=== PATIENT | male | born 1960 | race Caucasian/White ===

== ENCOUNTER 2021-09-26 11:37 | Inpatient (IN) | payer BC, SELFPAY ==
[2021-09-26] VITALS (7 sets, daily range): BP systolic 128–164; BP diastolic 75–89; O2SAT 89–93
[~2021-09-26] VITALS: Ht 172.7 cm; Wt 79.9 kg
[2021-09-26 14:52] LABS: BASO % 0.1 % (0.0-1.0); HEMATOCRIT 46.3 % (42.0-52.0); HEMOGLOBIN 14.5 g/dl (13.5-17.5); LYMPH # 2.9 10^3/uL (1.5-5.0); LYMPH % 33.5 % (24.0-44.0); MEAN CORPUSCULAR HEMOGLOBIN 29.7 pg (27.0-33.0); MEAN CORPUSCULAR HGB CONC 31.3 g/dl (32.0-36.5); MEAN CORPUSCULAR VOLUME 94.9 fl (80.0-96.0); MONO # 0.6 10^3/uL (0.0-0.8); MONO % 7.1 % (2.0-8.0); NEUTROPHILS # 5.1 10^3/uL (1.5-8.5); NEUTROPHILS % 58.7 % (36.0-66.0); RED BLOOD COUNT 4.88 10^6/uL (4.30-6.10); WHITE BLOOD COUNT 8.7 10^3/uL (4.0-10.0)
[2021-09-26 15:01] LABS: INR 0.85
[2021-09-26 15:02] LABS: PARTIAL THROMBOPLASTIN TIME 29.6 SECONDS (25.9-37.0)
[2021-09-26 15:04] LABS: D-DIMER QUANT 838.45 ng/ml (<500)
[2021-09-26 15:35] LABS: ALBUMIN 2.1 GM/DL (3.2-5.2); ALT/SGPT 60 U/L (12-78); BILIRUBIN,DIRECT 0.2 MG/DL (0.0-0.2); BILIRUBIN,TOTAL 0.5 MG/DL (0.2-1.0); BLOOD UREA NITROGEN 21 MG/DL (7-18); C REACTIVE PROTEIN QUANTITATIV 6.15 MG/DL (0.00-0.30); CALCIUM LEVEL 7.8 MG/DL (8.8-10.2); CARBON DIOXIDE LEVEL 28 MEQ/L (21-32); CHLORIDE LEVEL 110 MEQ/L (98-107); CREATININE FOR GFR 0.95 MG/DL (0.70-1.30); FERRITIN 1983 NG/ML (26-388); GLOMERULAR FILTRATION RATE > 60.0 (>49); GLUCOSE, FASTING 89 MG/DL (70-100); LDH LACTATE DEHYDROGENASE 467 U/L (87-241); MAGNESIUM LEVEL 1.9 MG/DL (1.8-2.4); NT-PRO BNP 168 PG/ML (<125); POTASSIUM SERUM 3.8 MEQ/L (3.5-5.1); SODIUM LEVEL 142 MEQ/L (136-145); TOTAL PROTEIN 5.1 GM/DL (6.4-8.2)
[2021-09-26 16:02] LABS: PLATELET COUNT, AUTOMATED 91 10^3/uL (150-450)
[2021-09-26] MEDS ORDERED: POTA10CA32 PO (16:07)
[2021-09-26] MEDS ORDERED: LOSA25TA14 PO (16:07)
[2021-09-26] MEDS ORDERED: PRED5TA PO (16:07)
[2021-09-26] MEDS ORDERED: ALLO300T2 PO (16:07)
[2021-09-26] MEDS ORDERED: ALBU8.5H INH (16:07)
[2021-09-26] MEDS ORDERED: MYCO500T PO (16:07)
[2021-09-26] MEDS ORDERED: ERGO500029 PO (16:07)
[2021-09-26] MEDS ORDERED: DESL1TAB3 PO (16:07)
[2021-09-26] MEDS ORDERED: HYDR12CA PO (16:07)
[2021-09-26] MEDS ORDERED: HOME MED LIST COMPLETE! XX SCH (16:10)
[2021-09-26] MEDS ORDERED: ALBUTEROL 90 MCG/ACT 8GM HFA INHALER INH PRN (16:30)
[2021-09-26] MEDS: ACETAMINOPHEN TAB 650MG DOSE (2X325MG) PO PRN ×2 (16:51→20:53)
[2021-09-26] MEDS: ONDANSETRON 4MG/2ML VIAL IV PRN (16:51)
[2021-09-26] MEDS: dexameTHASONE 4 MG/ML 1ML VIAL (J1100 PER 1MG) IV SCH ×2 (17:00→18:14)
[2021-09-26] MEDS ORDERED: REMDESIVIR 200 MG in NS 250 ML IV ONE (18:00)
[2021-09-26] MEDS: BARICITINIB 2MG TABLET (OLUMIANT) FOR EUA PO SCH (18:13)
[2021-09-26] MEDS: ASPIRIN 81MG ENTERIC TABLET PO SCH (18:14)
[2021-09-26] MEDS: NS 1,000 ML IV SCH (18:15)
[2021-09-26] MEDS ORDERED: SODIUM CHLORIDE 0.9% INJ 10 ML SYR IV ONE (19:00)
[2021-09-26] MEDS: MYCOPHENOLATE MOFETIL 250 MG CAP (J7517) PO SCH (20:53)
[2021-09-26 21:23] LABS: APPEARANCE, URINE CLEAR (CLEAR); BACTERIA, URINE AUTO NEGATIVE (NEGATIVE); BILIRUBIN, URINE AUTO NEGATIVE (NEGATIVE); BLOOD, URINE BLOOD 1+ (NEGATIVE); COLOR, URINE YELLOW (YELLOW); GLUCOSE, URINE (UA) AUTO NEGATIVE (NEGATIVE); KETONE, URINE AUTO NEGATIVE (NEGATIVE); LEUKOCYTE ESTERASE, URINE AUTO NEGATIVE (NEGATIVE); MUCUS, URINE SMALL (NEGATIVE); NITRITE, URINE AUTO NEGATIVE (NEGATIVE); PROTEIN, URINE AUTO 3+ mg/dL (NEGATIVE); RBC, URINE AUTO 1 /HPF (0-3); SPECIFIC GRAVITY URINE AUTO 1.019 (1.002-1.035); SQUAMOUS EPITHELIAL CELL UR AU 0 /HPF (0-6); UROBILINOGEN, URINE AUTO 0.2 mg/dL (0.0-2.0); WBC, URINE AUTO 1 /HPF (0-3)
[2021-09-27] VITALS (9 sets, daily range): BP systolic 129–160; BP diastolic 68–89; O2SAT 86–93
[2021-09-27] MEDS: NS 1,000 ML IV SCH (01:02)
[2021-09-27] MEDS: ACETAMINOPHEN TAB 650MG DOSE (2X325MG) PO PRN ×3 (01:03→15:48)
[2021-09-27 06:37] LABS: BASO % 0.2 % (0.0-1.0); HEMATOCRIT 43.5 % (42.0-52.0); HEMOGLOBIN 13.7 g/dl (13.5-17.5); LYMPH # 1.6 10^3/uL (1.5-5.0); LYMPH % 27.9 % (24.0-44.0); MEAN CORPUSCULAR HEMOGLOBIN 30.5 pg (27.0-33.0); MEAN CORPUSCULAR HGB CONC 31.5 g/dl (32.0-36.5); MEAN CORPUSCULAR VOLUME 96.9 fl (80.0-96.0); MONO # 0.3 10^3/uL (0.0-0.8); NEUTROPHILS # 3.9 10^3/uL (1.5-8.5); NEUTROPHILS % 66.4 % (36.0-66.0); RED BLOOD COUNT 4.49 10^6/uL (4.30-6.10); WHITE BLOOD COUNT 5.8 10^3/uL (4.0-10.0)
[2021-09-27 06:43] LABS: PLATELET COUNT, AUTOMATED 90 10^3/uL (150-450)
[2021-09-27 06:48] LABS: BLOOD UREA NITROGEN 24 MG/DL (7-18); CALCIUM LEVEL 7.5 MG/DL (8.8-10.2); CARBON DIOXIDE LEVEL 26 MEQ/L (21-32); CHLORIDE LEVEL 111 MEQ/L (98-107); GLOMERULAR FILTRATION RATE > 60.0 (>49); GLUCOSE, FASTING 156 MG/DL (70-100); MAGNESIUM LEVEL 1.8 MG/DL (1.8-2.4); POTASSIUM SERUM 4.8 MEQ/L (3.5-5.1); SODIUM LEVEL 142 MEQ/L (136-145)
[2021-09-27] MEDS: BARICITINIB 2MG TABLET (OLUMIANT) FOR EUA PO SCH (08:22)
[2021-09-27] MEDS: ASPIRIN 81MG ENTERIC TABLET PO SCH (08:22)
[2021-09-27] MEDS: LORATADINE 5 MG HALF-TAB PO SCH (08:22)
[2021-09-27] MEDS: dexameTHASONE 4 MG/ML 1ML VIAL (J1100 PER 1MG) IV SCH (08:23)
[2021-09-27] MEDS: allopurinoL 300 MG TAB PO SCH (08:23)
[2021-09-27] MEDS: LOSARTAN 25 MG TAB PO SCH (08:23)
[2021-09-27] MEDS: MYCOPHENOLATE MOFETIL 250 MG CAP (J7517) PO SCH ×2 (08:23→20:25)
[2021-09-27] MEDS: hydroCHLOROthiazide 12.5 MG CAPSULE PO SCH (08:23)
[2021-09-27] MEDS: ENOXAPARIN 40MG/0.4ML SYRINGE (J1650 PER 10MG) SC SCH (08:24)
[2021-09-27] MEDS ORDERED: POTASSIUM CHLORIDE 10MEQ SR TABLET PO SCH (09:00)
[2021-09-27] MEDS: REMDESIVIR 100 MG in NS 250 ML IV SCH (17:17)
[2021-09-27] MEDS: SODIUM CHLORIDE 0.9% INJ 10 ML SYR IV SCH (17:17)
[2021-09-28] VITALS (9 sets, daily range): BP systolic 139–150; BP diastolic 69–81; O2SAT 90–95
[2021-09-28 06:39] LABS: BASO % 0.1 % (0.0-1.0); HEMATOCRIT 44.9 % (42.0-52.0); HEMOGLOBIN 14.5 g/dl (13.5-17.5); LYMPH # 1.6 10^3/uL (1.5-5.0); LYMPH % 19.5 % (24.0-44.0); MEAN CORPUSCULAR HGB CONC 32.3 g/dl (32.0-36.5); MEAN CORPUSCULAR VOLUME 92.8 fl (80.0-96.0); MONO # 0.7 10^3/uL (0.0-0.8); MONO % 8.2 % (2.0-8.0); NEUTROPHILS % 71.5 % (36.0-66.0); PLATELET COUNT, AUTOMATED 124 10^3/uL (150-450); RED BLOOD COUNT 4.84 10^6/uL (4.30-6.10); WHITE BLOOD COUNT 8.4 10^3/uL (4.0-10.0)
[2021-09-28 06:47] LABS: INR 0.96; PROTHROMBIN TIME 13.2 SECONDS (12.7-14.5)
[2021-09-28 06:48] LABS: PARTIAL THROMBOPLASTIN TIME 30.2 SECONDS (25.9-37.0)
[2021-09-28 07:22] LABS: ALBUMIN 1.8 GM/DL (3.2-5.2); ALT/SGPT 64 U/L (12-78); BILIRUBIN,DIRECT 0.2 MG/DL (0.0-0.2); BILIRUBIN,TOTAL 0.5 MG/DL (0.2-1.0); BLOOD UREA NITROGEN 31 MG/DL (7-18); CALCIUM LEVEL 7.8 MG/DL (8.8-10.2); CARBON DIOXIDE LEVEL 24 MEQ/L (21-32); CHLORIDE LEVEL 109 MEQ/L (98-107); CREATININE FOR GFR 1.02 MG/DL (0.70-1.30); FERRITIN 2462 NG/ML (26-388); GLOMERULAR FILTRATION RATE > 60.0 (>49); GLUCOSE, FASTING 180 MG/DL (70-100); LDH LACTATE DEHYDROGENASE 482 U/L (87-241); MAGNESIUM LEVEL 1.9 MG/DL (1.8-2.4); NT-PRO BNP 606 PG/ML (<125); POTASSIUM SERUM 4.2 MEQ/L (3.5-5.1); SODIUM LEVEL 140 MEQ/L (136-145); TOTAL PROTEIN 5.5 GM/DL (6.4-8.2)
[2021-09-28] MEDS: dexameTHASONE 4 MG/ML 1ML VIAL (J1100 PER 1MG) IV SCH (09:35)
[2021-09-28] MEDS: LOSARTAN 25 MG TAB PO SCH (09:37)
[2021-09-28] MEDS: MYCOPHENOLATE MOFETIL 250 MG CAP (J7517) PO SCH ×2 (09:37→20:17)
[2021-09-28] MEDS: hydroCHLOROthiazide 12.5 MG CAPSULE PO SCH (09:38)
[2021-09-28] MEDS: allopurinoL 300 MG TAB PO SCH (09:38)
[2021-09-28] MEDS: LORATADINE 5 MG HALF-TAB PO SCH (09:38)
[2021-09-28] MEDS: BARICITINIB 2MG TABLET (OLUMIANT) FOR EUA PO SCH (09:40)
[2021-09-28] MEDS: ENOXAPARIN 40MG/0.4ML SYRINGE (J1650 PER 10MG) SC SCH (09:45)
[2021-09-28] MEDS: ASPIRIN 81MG ENTERIC TABLET PO SCH (09:50)
[2021-09-28] MEDS: REMDESIVIR 100 MG in NS 250 ML IV SCH (17:40)
[2021-09-28] MEDS: SODIUM CHLORIDE 0.9% INJ 10 ML SYR IV SCH (19:14)
[2021-09-28] MEDS: SODIUM CHLORIDE NASAL 0.65% SPRAY BTL (OCEAN) PRN (21:00)
[2021-09-29] VITALS (8 sets, daily range): BP systolic 125–142; BP diastolic 71–80; O2SAT 89–98
[2021-09-29] MEDS: SODIUM CHLORIDE NASAL 0.65% SPRAY BTL (OCEAN) PRN (05:19)
[2021-09-29 07:10] LABS: BASO % 0.1 % (0.0-1.0); HEMATOCRIT 43.6 % (42.0-52.0); HEMOGLOBIN 14.4 g/dl (13.5-17.5); LYMPH % 11.3 % (24.0-44.0); MEAN CORPUSCULAR HEMOGLOBIN 30.3 pg (27.0-33.0); MEAN CORPUSCULAR VOLUME 91.8 fl (80.0-96.0); MONO % 11.2 % (2.0-8.0); NEUTROPHILS # 6.7 10^3/uL (1.5-8.5); NEUTROPHILS % 76.7 % (36.0-66.0); PLATELET COUNT, AUTOMATED 140 10^3/uL (150-450); RED BLOOD COUNT 4.75 10^6/uL (4.30-6.10); WHITE BLOOD COUNT 8.8 10^3/uL (4.0-10.0)
[2021-09-29 07:36] LABS: BLOOD UREA NITROGEN 33 MG/DL (7-18); CALCIUM LEVEL 7.7 MG/DL (8.8-10.2); CARBON DIOXIDE LEVEL 24 MEQ/L (21-32); CHLORIDE LEVEL 107 MEQ/L (98-107); CREATININE FOR GFR 0.99 MG/DL (0.70-1.30); GLOMERULAR FILTRATION RATE > 60.0 (>49); GLUCOSE, FASTING 174 MG/DL (70-100); SODIUM LEVEL 140 MEQ/L (136-145)
[2021-09-29] MEDS: ENOXAPARIN 40MG/0.4ML SYRINGE (J1650 PER 10MG) SC SCH (08:42)
[2021-09-29] MEDS: BARICITINIB 2MG TABLET (OLUMIANT) FOR EUA PO SCH (08:42)
[2021-09-29] MEDS: hydroCHLOROthiazide 12.5 MG CAPSULE PO SCH (08:43)
[2021-09-29] MEDS: MYCOPHENOLATE MOFETIL 250 MG CAP (J7517) PO SCH ×2 (08:43→20:19)
[2021-09-29] MEDS: ASPIRIN 81MG ENTERIC TABLET PO SCH (08:43)
[2021-09-29] MEDS: dexameTHASONE 4 MG/ML 1ML VIAL (J1100 PER 1MG) IV SCH (08:44)
[2021-09-29] MEDS: LORATADINE 10 MG TAB PO SCH (08:44)
[2021-09-29] MEDS: allopurinoL 300 MG TAB PO SCH (08:44)
[2021-09-29] MEDS: LOSARTAN 25 MG TAB PO SCH (08:44)
[2021-09-29 09:05] LABS: INFLUENZA A AMPLIFICATION NEGATIVE (NEGATIVE); INFLUENZA B AMPLIFICATION NEGATIVE (NEGATIVE)
[2021-09-29] MEDS: LevoFLOXacin IV 750 MG in IV 1 EA IV SCH (12:51)
[2021-09-29 17:07] LABS: BODY FLUID CULTURE Not indicated. (.); LEGIONELLA ANTIGEN URINE Negative (Negative); ORGANISM ID Not indicated. (.); SPECIMEN SOURCE Urine (.); URINE STREP PNEUMONIAE ANTIGEN Negative (Negative)
[2021-09-29] MEDS: REMDESIVIR 100 MG in NS 250 ML IV SCH (18:03)
[2021-09-29] MEDS: SODIUM CHLORIDE 0.9% INJ 10 ML SYR IV SCH (18:19)
[2021-09-30 05:06] VITALS: BP 109/71
[2021-09-30 08:00] VITALS: BP 123/77; O2SAT 93
[2021-09-30 08:03] LABS: BASO % 0.1 % (0.0-1.0); HEMATOCRIT 43.9 % (42.0-52.0); HEMOGLOBIN 14.3 g/dl (13.5-17.5); LYMPH # 0.9 10^3/uL (1.5-5.0); LYMPH % 10.5 % (24.0-44.0); MEAN CORPUSCULAR HEMOGLOBIN 29.8 pg (27.0-33.0); MEAN CORPUSCULAR HGB CONC 32.6 g/dl (32.0-36.5); MEAN CORPUSCULAR VOLUME 91.5 fl (80.0-96.0); MONO # 1.1 10^3/uL (0.0-0.8); MONO % 12.3 % (2.0-8.0); NEUTROPHILS # 6.6 10^3/uL (1.5-8.5); NEUTROPHILS % 76.6 % (36.0-66.0); PLATELET COUNT, AUTOMATED 134 10^3/uL (150-450); WHITE BLOOD COUNT 8.7 10^3/uL (4.0-10.0)
[2021-09-30 08:06] LABS: PROTHROMBIN TIME 13.6 SECONDS (12.7-14.5)
[2021-09-30 08:07] LABS: PARTIAL THROMBOPLASTIN TIME 26.8 SECONDS (25.9-37.0)
[2021-09-30] MEDS: dexameTHASONE 4 MG/ML 1ML VIAL (J1100 PER 1MG) IV SCH (08:18)
[2021-09-30] MEDS: ENOXAPARIN 40MG/0.4ML SYRINGE (J1650 PER 10MG) SC SCH (08:18)
[2021-09-30] MEDS: MYCOPHENOLATE MOFETIL 250 MG CAP (J7517) PO SCH ×2 (08:18→19:56)
[2021-09-30] MEDS: allopurinoL 300 MG TAB PO SCH (08:20)
[2021-09-30] MEDS: hydroCHLOROthiazide 12.5 MG CAPSULE PO SCH (08:20)
[2021-09-30] MEDS: BARICITINIB 2MG TABLET (OLUMIANT) FOR EUA PO SCH (08:20)
[2021-09-30] MEDS: LOSARTAN 25 MG TAB PO SCH (08:22)
[2021-09-30] MEDS: ASPIRIN 81MG ENTERIC TABLET PO SCH (08:22)
[2021-09-30] MEDS: LORATADINE 10 MG TAB PO SCH (08:23)
[2021-09-30 08:44] LABS: ALBUMIN 1.8 GM/DL (3.2-5.2); ALT/SGPT 150 U/L (12-78); BILIRUBIN,DIRECT 0.3 MG/DL (0.0-0.2); BILIRUBIN,TOTAL 0.8 MG/DL (0.2-1.0); BLOOD UREA NITROGEN 40 MG/DL (7-18); CALCIUM LEVEL 7.5 MG/DL (8.8-10.2); CARBON DIOXIDE LEVEL 25 MEQ/L (21-32); CHLORIDE LEVEL 103 MEQ/L (98-107); CREATININE FOR GFR 1.02 MG/DL (0.70-1.30); FERRITIN 2741 NG/ML (26-388); GLOMERULAR FILTRATION RATE > 60.0 (>49); GLUCOSE, FASTING 170 MG/DL (70-100); LDH LACTATE DEHYDROGENASE 574 U/L (87-241); MAGNESIUM LEVEL 2.1 MG/DL (1.8-2.4); NT-PRO BNP 164 PG/ML (<125); POTASSIUM SERUM 4.1 MEQ/L (3.5-5.1); SODIUM LEVEL 138 MEQ/L (136-145); TOTAL PROTEIN 4.7 GM/DL (6.4-8.2)
[2021-09-30] MEDS: PANTOPRAZOLE 40MG TAB (PROTONIX) PO SCH ×2 (08:58→19:55)
[2021-09-30] MEDS ORDERED: CALCIUM CARBONATE 500 MG CHEW U/D PO ONE (09:00)
[2021-09-30] MEDS: LevoFLOXacin IV 750 MG in IV 1 EA IV SCH (11:55)
[2021-09-30] MEDS: TAMSULOSIN 0.4 MG CAP PO SCH (11:56)
[2021-09-30] MEDS: hydrOXYzine 25 MG TAB PO PRN ×2 (11:56→19:56)
[2021-09-30 12:00] VITALS: BP 104/76; O2SAT 92
[2021-09-30 16:00] VITALS: BP 108/65; O2SAT 96
[2021-09-30] MEDS: SODIUM CHLORIDE 0.9% INJ 10 ML SYR IV SCH (18:03)
[2021-09-30] MEDS: REMDESIVIR 100 MG in NS 250 ML IV SCH (18:03)
[2021-09-30 20:00] VITALS: BP 103/67
[2021-10-01] VITALS (7 sets, daily range): BP systolic 105–143; BP diastolic 65–76; O2SAT 91–94
[2021-10-01 07:45] LABS: HEMATOCRIT 41.3 % (42.0-52.0); HEMOGLOBIN 13.5 g/dl (13.5-17.5); LYMPH # 0.6 10^3/uL (1.5-5.0); LYMPH % 7.2 % (24.0-44.0); MEAN CORPUSCULAR HEMOGLOBIN 29.9 pg (27.0-33.0); MEAN CORPUSCULAR HGB CONC 32.7 g/dl (32.0-36.5); MEAN CORPUSCULAR VOLUME 91.4 fl (80.0-96.0); MONO % 11.9 % (2.0-8.0); NEUTROPHILS % 80.4 % (36.0-66.0); PLATELET COUNT, AUTOMATED 111 10^3/uL (150-450); RED BLOOD COUNT 4.52 10^6/uL (4.30-6.10); WHITE BLOOD COUNT 8.6 10^3/uL (4.0-10.0)
[2021-10-01 08:02] LABS: BLOOD UREA NITROGEN 48 MG/DL (7-18); CALCIUM LEVEL 7.3 MG/DL (8.8-10.2); CARBON DIOXIDE LEVEL 24 MEQ/L (21-32); CHLORIDE LEVEL 106 MEQ/L (98-107); CREATININE FOR GFR 1.21 MG/DL (0.70-1.30); GLOMERULAR FILTRATION RATE > 60.0 (>49); GLUCOSE, FASTING 187 MG/DL (70-100); MAGNESIUM LEVEL 2.3 MG/DL (1.8-2.4); SODIUM LEVEL 139 MEQ/L (136-145)
[2021-10-01] MEDS: LORATADINE 10 MG TAB PO SCH (08:39)
[2021-10-01] MEDS: BARICITINIB 2MG TABLET (OLUMIANT) FOR EUA PO SCH (08:40)
[2021-10-01] MEDS: hydrOXYzine 25 MG TAB PO PRN (08:40)
[2021-10-01] MEDS: PANTOPRAZOLE 40MG TAB (PROTONIX) PO SCH ×2 (08:41→20:34)
[2021-10-01] MEDS: hydroCHLOROthiazide 12.5 MG CAPSULE PO SCH (08:41)
[2021-10-01] MEDS: TAMSULOSIN 0.4 MG CAP PO SCH (08:41)
[2021-10-01] MEDS: MYCOPHENOLATE MOFETIL 250 MG CAP (J7517) PO SCH ×2 (08:41→20:33)
[2021-10-01] MEDS: LOSARTAN 25 MG TAB PO SCH (08:42)
[2021-10-01] MEDS: allopurinoL 300 MG TAB PO SCH (08:42)
[2021-10-01] MEDS: dexameTHASONE 4 MG/ML 1ML VIAL (J1100 PER 1MG) IV SCH (08:42)
[2021-10-01] MEDS: ENOXAPARIN 40MG/0.4ML SYRINGE (J1650 PER 10MG) SC SCH (08:42)
[2021-10-01] MEDS: ASPIRIN 81MG ENTERIC TABLET PO SCH (08:42)
[2021-10-01] MEDS: LevoFLOXacin IV 750 MG in IV 1 EA IV SCH (13:34)
[2021-10-01] MEDS: ACETAMINOPHEN TAB 650MG DOSE (2X325MG) PO PRN (20:33)
[2021-10-02] VITALS (9 sets, daily range): BP systolic 97–142; BP diastolic 57–85; O2SAT 91–97
[2021-10-02 06:51] LABS: HEMATOCRIT 38.7 % (42.0-52.0); MEAN CORPUSCULAR HEMOGLOBIN 30.1 pg (27.0-33.0); MEAN CORPUSCULAR HGB CONC 33.6 g/dl (32.0-36.5); MEAN CORPUSCULAR VOLUME 89.6 fl (80.0-96.0); PLATELET COUNT, AUTOMATED 109 10^3/uL (150-450); RED BLOOD COUNT 4.32 10^6/uL (4.30-6.10); WHITE BLOOD COUNT 7.8 10^3/uL (4.0-10.0)
[2021-10-02 07:01] LABS: INR 1.18; PROTHROMBIN TIME 15.4 SECONDS (12.7-14.5)
[2021-10-02 08:01] LABS: ALBUMIN 1.6 GM/DL (3.2-5.2); ALT/SGPT 103 U/L (12-78); BILIRUBIN,DIRECT 0.3 MG/DL (0.0-0.2); BILIRUBIN,TOTAL 0.7 MG/DL (0.2-1.0); BLOOD UREA NITROGEN 50 MG/DL (7-18); CALCIUM LEVEL 7.3 MG/DL (8.8-10.2); CARBON DIOXIDE LEVEL 25 MEQ/L (21-32); CHLORIDE LEVEL 105 MEQ/L (98-107); CREATININE FOR GFR 1.26 MG/DL (0.70-1.30); FERRITIN 1903 NG/ML (26-388); GLOMERULAR FILTRATION RATE > 60.0 (>49); GLUCOSE, FASTING 259 MG/DL (70-100); LDH LACTATE DEHYDROGENASE 500 U/L (87-241); MAGNESIUM LEVEL 2.3 MG/DL (1.8-2.4); NT-PRO BNP 83 PG/ML (<125); POTASSIUM SERUM 3.6 MEQ/L (3.5-5.1); SODIUM LEVEL 137 MEQ/L (136-145); TOTAL PROTEIN 4.4 GM/DL (6.4-8.2)
[2021-10-02] MEDS: ENOXAPARIN 40MG/0.4ML SYRINGE (J1650 PER 10MG) SC SCH (08:10)
[2021-10-02] MEDS: LORATADINE 10 MG TAB PO SCH (08:11)
[2021-10-02] MEDS: LOSARTAN 25 MG TAB PO SCH (08:11)
[2021-10-02] MEDS: dexameTHASONE 4 MG/ML 1ML VIAL (J1100 PER 1MG) IV SCH (08:11)
[2021-10-02] MEDS: allopurinoL 300 MG TAB PO SCH (08:12)
[2021-10-02] MEDS: ASPIRIN 81MG ENTERIC TABLET PO SCH (08:12)
[2021-10-02] MEDS: BARICITINIB 2MG TABLET (OLUMIANT) FOR EUA PO SCH (08:13)
[2021-10-02] MEDS: PANTOPRAZOLE 40MG TAB (PROTONIX) PO SCH ×2 (08:13→20:43)
[2021-10-02] MEDS: MYCOPHENOLATE MOFETIL 250 MG CAP (J7517) PO SCH ×2 (08:14→20:42)
[2021-10-02] MEDS: hydroCHLOROthiazide 12.5 MG CAPSULE PO SCH (08:14)
[2021-10-02] MEDS: TAMSULOSIN 0.4 MG CAP PO SCH (08:14)
[2021-10-02] MEDS: LevoFLOXacin 750 MG TABLET PO SCH (11:14)
[2021-10-02] MEDS ORDERED: NYSTATIN 500,000 U/5 ML SUSP UDC SS ONE (16:00)
[2021-10-02] MEDS ORDERED: NYSTATIN 500,000 U/5 ML SUSP UDC SS SCH (18:00)
[2021-10-02] MEDS: LACTOBACILLUS ACIDOPHILUS CAP (BACID) PO SCH (20:42)
[2021-10-02] MEDS: hydrOXYzine 25 MG TAB PO PRN (20:43)
[2021-10-02] MEDS: NYSTATIN 500,000 U/5 ML SUSP UDC SS SCH (23:26)
[2021-10-03] VITALS (12 sets, daily range): BP systolic 97–144; BP diastolic 57–79; O2SAT 89–99
[2021-10-03] MEDS: ACETAMINOPHEN TAB 650MG DOSE (2X325MG) PO PRN ×2 (04:09→21:01)
[2021-10-03] MEDS: NYSTATIN 500,000 U/5 ML SUSP UDC SS SCH ×4 (05:18→23:38)
[2021-10-03] MEDS: LevoFLOXacin 750 MG TABLET PO SCH (05:18)
[2021-10-03 06:16] LABS: HEMATOCRIT 41.4 % (42.0-52.0); HEMOGLOBIN 13.6 g/dl (13.5-17.5); MEAN CORPUSCULAR HEMOGLOBIN 29.8 pg (27.0-33.0); MEAN CORPUSCULAR HGB CONC 32.9 g/dl (32.0-36.5); MEAN CORPUSCULAR VOLUME 90.6 fl (80.0-96.0); PLATELET COUNT, AUTOMATED 114 10^3/uL (150-450); RED BLOOD COUNT 4.57 10^6/uL (4.30-6.10)
[2021-10-03 06:35] LABS: BLOOD UREA NITROGEN 46 MG/DL (7-18); CALCIUM LEVEL 7.5 MG/DL (8.8-10.2); CARBON DIOXIDE LEVEL 27 MEQ/L (21-32); CHLORIDE LEVEL 105 MEQ/L (98-107); CREATININE FOR GFR 1.24 MG/DL (0.70-1.30); GLOMERULAR FILTRATION RATE > 60.0 (>49); GLUCOSE, FASTING 282 MG/DL (70-100); MAGNESIUM LEVEL 2.6 MG/DL (1.8-2.4); POTASSIUM SERUM 3.9 MEQ/L (3.5-5.1); SODIUM LEVEL 137 MEQ/L (136-145)
[2021-10-03] MEDS: ASPIRIN 81MG ENTERIC TABLET PO SCH (08:20)
[2021-10-03] MEDS: LOSARTAN 25 MG TAB PO SCH (08:20)
[2021-10-03] MEDS: hydroCHLOROthiazide 12.5 MG CAPSULE PO SCH (08:20)
[2021-10-03] MEDS: PANTOPRAZOLE 40MG TAB (PROTONIX) PO SCH ×2 (08:20→20:52)
[2021-10-03] MEDS: TAMSULOSIN 0.4 MG CAP PO SCH (08:21)
[2021-10-03] MEDS: allopurinoL 300 MG TAB PO SCH (08:21)
[2021-10-03] MEDS: LACTOBACILLUS ACIDOPHILUS CAP (BACID) PO SCH (08:21)
[2021-10-03] MEDS: BARICITINIB 2MG TABLET (OLUMIANT) FOR EUA PO SCH (08:22)
[2021-10-03] MEDS: MYCOPHENOLATE MOFETIL 250 MG CAP (J7517) PO SCH ×2 (08:24→20:52)
[2021-10-03] MEDS: dexameTHASONE 4 MG/ML 1ML VIAL (J1100 PER 1MG) IV SCH (08:24)
[2021-10-03] MEDS: ENOXAPARIN 40MG/0.4ML SYRINGE (J1650 PER 10MG) SC SCH (08:24)
[2021-10-03] MEDS: LORATADINE 10 MG TAB PO SCH (10:20)
[2021-10-03] MEDS: hydrOXYzine 25 MG TAB PO PRN (20:52)
[2021-10-03] MEDS ORDERED: CYCLOBENZAPRINE 5MG TABLET PO ONE (23:05)
[2021-10-04] VITALS (7 sets, daily range): BP systolic 104–118; BP diastolic 59–73; O2SAT 90–99
[2021-10-04 00:02] LABS: CK-MB VALUE MASS 2.9 NG/ML (<3.6); MB/CK RELATIVE INDEX 0.97 (< OR =4)
[2021-10-04 04:22] LABS: HEMATOCRIT 37.6 % (42.0-52.0); HEMOGLOBIN 12.6 g/dl (13.5-17.5); MEAN CORPUSCULAR HEMOGLOBIN 29.9 pg (27.0-33.0); MEAN CORPUSCULAR HGB CONC 33.5 g/dl (32.0-36.5); MEAN CORPUSCULAR VOLUME 89.1 fl (80.0-96.0); PLATELET COUNT, AUTOMATED 123 10^3/uL (150-450); RED BLOOD COUNT 4.22 10^6/uL (4.30-6.10); WHITE BLOOD COUNT 8.3 10^3/uL (4.0-10.0)
[2021-10-04 04:59] LABS: BLOOD UREA NITROGEN 43 MG/DL (7-18); CARBON DIOXIDE LEVEL 26 MEQ/L (21-32); CHLORIDE LEVEL 102 MEQ/L (98-107); CREATININE FOR GFR 1.19 MG/DL (0.70-1.30); GLOMERULAR FILTRATION RATE > 60.0 (>49); GLUCOSE, FASTING 302 MG/DL (70-100); MAGNESIUM LEVEL 2.4 MG/DL (1.8-2.4); POTASSIUM SERUM 3.8 MEQ/L (3.5-5.1); SODIUM LEVEL 137 MEQ/L (136-145)
[2021-10-04] MEDS: NYSTATIN 500,000 U/5 ML SUSP UDC SS SCH ×4 (05:29→23:30)
[2021-10-04] MEDS: ENOXAPARIN 40MG/0.4ML SYRINGE (J1650 PER 10MG) SC SCH (08:12)
[2021-10-04] MEDS: LORATADINE 10 MG TAB PO SCH (08:13)
[2021-10-04] MEDS: PANTOPRAZOLE 40MG TAB (PROTONIX) PO SCH ×2 (08:14→20:47)
[2021-10-04] MEDS: LACTOBACILLUS ACIDOPHILUS CAP (BACID) PO SCH (08:14)
[2021-10-04] MEDS: BARICITINIB 2MG TABLET (OLUMIANT) FOR EUA PO SCH (08:14)
[2021-10-04] MEDS: ASPIRIN 81MG ENTERIC TABLET PO SCH (08:14)
[2021-10-04] MEDS: allopurinoL 300 MG TAB PO SCH (08:15)
[2021-10-04] MEDS: dexameTHASONE 4 MG/ML 1ML VIAL (J1100 PER 1MG) IV SCH (08:15)
[2021-10-04] MEDS: TAMSULOSIN 0.4 MG CAP PO SCH (08:15)
[2021-10-04] MEDS: MYCOPHENOLATE MOFETIL 250 MG CAP (J7517) PO SCH ×2 (08:16→20:47)
[2021-10-04 08:24] LABS: ALBUMIN 1.6 GM/DL (3.2-5.2); ALT/SGPT 85 U/L (12-78); BILIRUBIN,DIRECT 0.3 MG/DL (0.0-0.2); BILIRUBIN,TOTAL 0.8 MG/DL (0.2-1.0)
[2021-10-04] MEDS ORDERED: GLUCOSE 4GM CHEW TABLET PO PRN (12:45)
[2021-10-04] MEDS ORDERED: GLUCAGON INJ 1MG VIAL SC PRN (12:45)
[2021-10-04] MEDS: HumaLOG INSULIN (NovoLOG) PER UNIT SC SCH ×3 (13:02→20:54)
[2021-10-05] VITALS (7 sets, daily range): BP systolic 91–144; BP diastolic 61–79; O2SAT 90–95
[2021-10-05] MEDS: NYSTATIN 500,000 U/5 ML SUSP UDC SS SCH ×3 (05:19→16:53)
[2021-10-05] MEDS: HumaLOG INSULIN (NovoLOG) PER UNIT SC SCH ×4 (07:33→20:58)
[2021-10-05 08:10] LABS: HEMATOCRIT 42.1 % (42.0-52.0); HEMOGLOBIN 14.1 g/dl (13.5-17.5); MEAN CORPUSCULAR HEMOGLOBIN 29.9 pg (27.0-33.0); MEAN CORPUSCULAR HGB CONC 33.5 g/dl (32.0-36.5); MEAN CORPUSCULAR VOLUME 89.4 fl (80.0-96.0); PLATELET COUNT, AUTOMATED 136 10^3/uL (150-450); RED BLOOD COUNT 4.71 10^6/uL (4.30-6.10); WHITE BLOOD COUNT 12.8 10^3/uL (4.0-10.0)
[2021-10-05] MEDS: LEVEMIR (INSULIN DETEMIR) 1 UNITS/0.01ML SC SCH (08:23)
[2021-10-05] MEDS: PANTOPRAZOLE 40MG TAB (PROTONIX) PO SCH ×2 (08:24→20:31)
[2021-10-05] MEDS: ENOXAPARIN 40MG/0.4ML SYRINGE (J1650 PER 10MG) SC SCH (08:24)
[2021-10-05] MEDS: MYCOPHENOLATE MOFETIL 250 MG CAP (J7517) PO SCH ×2 (08:24→20:31)
[2021-10-05] MEDS: TAMSULOSIN 0.4 MG CAP PO SCH (08:24)
[2021-10-05] MEDS: dexameTHASONE 4 MG/ML 1ML VIAL (J1100 PER 1MG) IV SCH (08:24)
[2021-10-05] MEDS: allopurinoL 300 MG TAB PO SCH (08:24)
[2021-10-05] MEDS: BARICITINIB 2MG TABLET (OLUMIANT) FOR EUA PO SCH (08:25)
[2021-10-05] MEDS: LORATADINE 10 MG TAB PO SCH (08:25)
[2021-10-05] MEDS: LACTOBACILLUS ACIDOPHILUS CAP (BACID) PO SCH (08:25)
[2021-10-05] MEDS: ASPIRIN 81MG ENTERIC TABLET PO SCH (08:26)
[2021-10-05 08:40] LABS: ALBUMIN 1.8 GM/DL (3.2-5.2); ALT/SGPT 82 U/L (12-78); BILIRUBIN,DIRECT 0.3 MG/DL (0.0-0.2); BLOOD UREA NITROGEN 41 MG/DL (7-18); CALCIUM LEVEL 7.6 MG/DL (8.8-10.2); CARBON DIOXIDE LEVEL 26 MEQ/L (21-32); CHLORIDE LEVEL 105 MEQ/L (98-107); CREATININE FOR GFR 1.15 MG/DL (0.70-1.30); GLOMERULAR FILTRATION RATE > 60.0 (>49); GLUCOSE, FASTING 186 MG/DL (70-100); MAGNESIUM LEVEL 2.3 MG/DL (1.8-2.4); POTASSIUM SERUM 3.8 MEQ/L (3.5-5.1); SODIUM LEVEL 138 MEQ/L (136-145); TOTAL PROTEIN 4.7 GM/DL (6.4-8.2)
[2021-10-05 10:14] LABS: HEMOGLOBIN A1c 7.3 %
[2021-10-05] MEDS ORDERED: FUROSEMIDE 40MG/4ML VIAL (J1940) IV ONE (14:00)
[2021-10-05] MEDS: ACETAMINOPHEN TAB 650MG DOSE (2X325MG) PO PRN (18:34)
[2021-10-05] MEDS ORDERED: SILVER NITRATE APPLICATOR TOP ONE (19:55)
[2021-10-05] MEDS: hydrOXYzine 25 MG TAB PO PRN (20:32)
[2021-10-05] MEDS: dexameTHASONE 20MG/5ML VIAL (J1100 PER 1MG) IV SCH (20:32)
[2021-10-05] MEDS ORDERED: SODIUM CHLORIDE NASAL 0.65% SPRAY BTL (OCEAN) PRN (20:50)
[2021-10-06] VITALS (8 sets, daily range): BP systolic 101–138; BP diastolic 64–83; O2SAT 90–97
[2021-10-06] MEDS: NYSTATIN 500,000 U/5 ML SUSP UDC SS SCH ×4 (00:39→18:14)
[2021-10-06 06:55] LABS: HEMOGLOBIN 12.9 g/dl (13.5-17.5); MEAN CORPUSCULAR HEMOGLOBIN 29.9 pg (27.0-33.0); MEAN CORPUSCULAR HGB CONC 33.9 g/dl (32.0-36.5); MEAN CORPUSCULAR VOLUME 88.2 fl (80.0-96.0); PLATELET COUNT, AUTOMATED 124 10^3/uL (150-450); RED BLOOD COUNT 4.31 10^6/uL (4.30-6.10); WHITE BLOOD COUNT 8.1 10^3/uL (4.0-10.0)
[2021-10-06 07:13] LABS: BLOOD UREA NITROGEN 50 MG/DL (7-18); CALCIUM LEVEL 7.3 MG/DL (8.8-10.2); CARBON DIOXIDE LEVEL 26 MEQ/L (21-32); CHLORIDE LEVEL 100 MEQ/L (98-107); CREATININE FOR GFR 1.22 MG/DL (0.70-1.30); GLOMERULAR FILTRATION RATE > 60.0 (>49); GLUCOSE, FASTING 364 MG/DL (70-100); MAGNESIUM LEVEL 2.4 MG/DL (1.8-2.4); POTASSIUM SERUM 3.9 MEQ/L (3.5-5.1); SODIUM LEVEL 133 MEQ/L (136-145)
[2021-10-06] MEDS: HumaLOG INSULIN (NovoLOG) PER UNIT SC SCH ×4 (07:40→20:44)
[2021-10-06] MEDS: BARICITINIB 2MG TABLET (OLUMIANT) FOR EUA PO SCH (08:41)
[2021-10-06] MEDS: allopurinoL 300 MG TAB PO SCH (08:41)
[2021-10-06] MEDS: LACTOBACILLUS ACIDOPHILUS CAP (BACID) PO SCH (08:41)
[2021-10-06] MEDS: PANTOPRAZOLE 40MG TAB (PROTONIX) PO SCH ×2 (08:43→20:44)
[2021-10-06] MEDS: TAMSULOSIN 0.4 MG CAP PO SCH (08:43)
[2021-10-06] MEDS: ASPIRIN 81MG ENTERIC TABLET PO SCH (08:43)
[2021-10-06] MEDS: LORATADINE 10 MG TAB PO SCH (08:44)
[2021-10-06] MEDS: LEVEMIR (INSULIN DETEMIR) 1 UNITS/0.01ML SC SCH ×2 (08:45→20:46)
[2021-10-06] MEDS: MUPIROCIN 2% OINT 22 GM TUBE TOP SCH ×2 (09:00→20:46)
[2021-10-06] MEDS: ENOXAPARIN 40MG/0.4ML SYRINGE (J1650 PER 10MG) SC SCH (09:00)
[2021-10-06] MEDS: dexameTHASONE 20MG/5ML VIAL (J1100 PER 1MG) IV SCH ×2 (09:35→20:44)
[2021-10-06] MEDS: MYCOPHENOLATE MOFETIL 250 MG CAP (J7517) PO SCH ×2 (10:33→20:43)
[2021-10-06] MEDS: hydrOXYzine 25 MG TAB PO PRN ×2 (12:38→20:44)
[2021-10-06 13:25] LABS: CK-MB VALUE MASS 3.2 NG/ML (<3.6); MB/CK RELATIVE INDEX 1.58 (< OR =4)
[2021-10-06 18:47] LABS: CK-MB VALUE MASS 2.8 NG/ML (<3.6); MB/CK RELATIVE INDEX 1.44 (< OR =4)
[2021-10-06] MEDS: ACETAMINOPHEN TAB 650MG DOSE (2X325MG) PO PRN (19:05)
[2021-10-07] VITALS (12 sets, daily range): BP systolic 121–153; BP diastolic 65–94; O2SAT 86–94
[2021-10-07] MEDS: NYSTATIN 500,000 U/5 ML SUSP UDC SS SCH ×5 (01:13→23:37)
[2021-10-07] MEDS: ACETAMINOPHEN TAB 650MG DOSE (2X325MG) PO PRN ×2 (04:24→22:25)
[2021-10-07] MEDS: HumaLOG INSULIN (NovoLOG) PER UNIT SC SCH ×4 (07:30→22:00)
[2021-10-07 07:45] LABS: HEMATOCRIT 38.9 % (42.0-52.0); HEMOGLOBIN 13.1 g/dl (13.5-17.5); MEAN CORPUSCULAR HEMOGLOBIN 29.8 pg (27.0-33.0); MEAN CORPUSCULAR HGB CONC 33.7 g/dl (32.0-36.5); MEAN CORPUSCULAR VOLUME 88.4 fl (80.0-96.0); PLATELET COUNT, AUTOMATED 143 10^3/uL (150-450); WHITE BLOOD COUNT 12.9 10^3/uL (4.0-10.0)
[2021-10-07 08:09] LABS: BLOOD UREA NITROGEN 50 MG/DL (7-18); CALCIUM LEVEL 7.7 MG/DL (8.8-10.2); CARBON DIOXIDE LEVEL 28 MEQ/L (21-32); CHLORIDE LEVEL 102 MEQ/L (98-107); GLOMERULAR FILTRATION RATE > 60.0 (>49); GLUCOSE, FASTING 92 MG/DL (70-100); MAGNESIUM LEVEL 2.3 MG/DL (1.8-2.4); POTASSIUM SERUM 3.8 MEQ/L (3.5-5.1); SODIUM LEVEL 136 MEQ/L (136-145)
[2021-10-07] MEDS: LEVEMIR (INSULIN DETEMIR) 1 UNITS/0.01ML SC SCH ×2 (08:37→20:44)
[2021-10-07] MEDS: ENOXAPARIN 40MG/0.4ML SYRINGE (J1650 PER 10MG) SC SCH (09:02)
[2021-10-07] MEDS: dexameTHASONE 20MG/5ML VIAL (J1100 PER 1MG) IV SCH ×2 (09:03→20:35)
[2021-10-07] MEDS: ASPIRIN 81MG ENTERIC TABLET PO SCH (09:03)
[2021-10-07] MEDS: TAMSULOSIN 0.4 MG CAP PO SCH (09:03)
[2021-10-07] MEDS: allopurinoL 300 MG TAB PO SCH (09:03)
[2021-10-07] MEDS: MYCOPHENOLATE MOFETIL 250 MG CAP (J7517) PO SCH ×2 (09:04→20:36)
[2021-10-07] MEDS: BARICITINIB 2MG TABLET (OLUMIANT) FOR EUA PO SCH (09:04)
[2021-10-07] MEDS: LACTOBACILLUS ACIDOPHILUS CAP (BACID) PO SCH (09:04)
[2021-10-07] MEDS: PANTOPRAZOLE 40MG TAB (PROTONIX) PO SCH ×2 (09:05→20:35)
[2021-10-07] MEDS: LORATADINE 10 MG TAB PO SCH (09:05)
[2021-10-07] MEDS: MUPIROCIN 2% OINT 22 GM TUBE TOP SCH ×2 (09:05→20:51)
[2021-10-07] MEDS ORDERED: FUROSEMIDE 100MG/10ML VIAL (J1940) IV ONE (15:30)
[2021-10-07] MEDS: ALBUTEROL 90 MCG/ACT 8GM HFA INHALER INH SCH (20:00)
[2021-10-08] VITALS (19 sets, daily range): BP systolic 113–175; BP diastolic 71–100
[2021-10-08] MEDS: hydrOXYzine 25 MG TAB PO PRN ×3 (05:08→23:00)
[2021-10-08] MEDS: NYSTATIN 500,000 U/5 ML SUSP UDC SS SCH ×4 (05:08→23:00)
[2021-10-08] MEDS: ACETAMINOPHEN TAB 650MG DOSE (2X325MG) PO PRN ×4 (05:09→20:17)
[2021-10-08 05:45] LABS: HEMATOCRIT 43.4 % (42.0-52.0); HEMOGLOBIN 14.3 g/dl (13.5-17.5); MEAN CORPUSCULAR HEMOGLOBIN 29.5 pg (27.0-33.0); MEAN CORPUSCULAR HGB CONC 32.9 g/dl (32.0-36.5); MEAN CORPUSCULAR VOLUME 89.5 fl (80.0-96.0); PLATELET COUNT, AUTOMATED 164 10^3/uL (150-450); RED BLOOD COUNT 4.85 10^6/uL (4.30-6.10); WHITE BLOOD COUNT 12.4 10^3/uL (4.0-10.0)
[2021-10-08 06:13] LABS: BLOOD UREA NITROGEN 52 MG/DL (7-18); CALCIUM LEVEL 7.3 MG/DL (8.8-10.2); CARBON DIOXIDE LEVEL 34 MEQ/L (21-32); CHLORIDE LEVEL 101 MEQ/L (98-107); CREATININE FOR GFR 1.27 MG/DL (0.70-1.30); GLOMERULAR FILTRATION RATE > 60.0 (>49); GLUCOSE, FASTING 147 MG/DL (70-100); MAGNESIUM LEVEL 2.5 MG/DL (1.8-2.4); POTASSIUM SERUM 3.8 MEQ/L (3.5-5.1); SODIUM LEVEL 141 MEQ/L (136-145)
[2021-10-08] MEDS: HumaLOG INSULIN (NovoLOG) PER UNIT SC SCH ×4 (07:30→21:38)
[2021-10-08] MEDS: ALBUTEROL 90 MCG/ACT 8GM HFA INHALER INH SCH ×4 (07:49→19:11)
[2021-10-08 08:30] LABS: ALBUMIN 2.1 GM/DL (3.2-5.2); ALT/SGPT 78 U/L (12-78); BILIRUBIN,DIRECT 0.3 MG/DL (0.0-0.2); BILIRUBIN,TOTAL 0.7 MG/DL (0.2-1.0); TOTAL PROTEIN 4.8 GM/DL (6.4-8.2)
[2021-10-08] MEDS: MUPIROCIN 2% OINT 22 GM TUBE TOP SCH ×2 (09:00→09:28)
[2021-10-08] MEDS: BARICITINIB 2MG TABLET (OLUMIANT) FOR EUA PO SCH (09:05)
[2021-10-08] MEDS: LACTOBACILLUS ACIDOPHILUS CAP (BACID) PO SCH (09:05)
[2021-10-08] MEDS: allopurinoL 300 MG TAB PO SCH (09:06)
[2021-10-08] MEDS: ASPIRIN 81MG ENTERIC TABLET PO SCH (09:06)
[2021-10-08] MEDS: TAMSULOSIN 0.4 MG CAP PO SCH (09:06)
[2021-10-08] MEDS: LORATADINE 10 MG TAB PO SCH (09:06)
[2021-10-08] MEDS: PANTOPRAZOLE 40MG TAB (PROTONIX) PO SCH ×2 (09:06→20:17)
[2021-10-08] MEDS: MYCOPHENOLATE MOFETIL 250 MG CAP (J7517) PO SCH ×2 (09:08→20:16)
[2021-10-08] MEDS: ENOXAPARIN 40MG/0.4ML SYRINGE (J1650 PER 10MG) SC SCH (09:08)
[2021-10-08] MEDS: LEVEMIR (INSULIN DETEMIR) 1 UNITS/0.01ML SC SCH ×2 (09:09→20:31)
[2021-10-08] MEDS: dexameTHASONE 20MG/5ML VIAL (J1100 PER 1MG) IV SCH ×2 (09:11→20:16)
[2021-10-08] MEDS ORDERED: zolPIDEM TARTRATE 5 MG TAB PO ONE (21:40)
[2021-10-09] VITALS (25 sets, daily range): BP systolic 98–159; BP diastolic 59–100; O2SAT 94
[2021-10-09] MEDS: ACETAMINOPHEN TAB 650MG DOSE (2X325MG) PO PRN ×2 (03:04→17:35)
[2021-10-09] MEDS: ONDANSETRON 4MG/2ML VIAL IV PRN (03:04)
[2021-10-09] MEDS: NYSTATIN 500,000 U/5 ML SUSP UDC SS SCH ×4 (05:26→23:59)
[2021-10-09 08:03] LABS: BASO % 0.3 % (0.0-1.0); HEMATOCRIT 45.2 % (42.0-52.0); HEMOGLOBIN 14.8 g/dl (13.5-17.5); LYMPH # 0.4 10^3/uL (1.5-5.0); LYMPH % 2.3 % (24.0-44.0); MEAN CORPUSCULAR HEMOGLOBIN 29.7 pg (27.0-33.0); MEAN CORPUSCULAR HGB CONC 32.7 g/dl (32.0-36.5); MEAN CORPUSCULAR VOLUME 90.8 fl (80.0-96.0); MONO # 1.6 10^3/uL (0.0-0.8); MONO % 10.2 % (2.0-8.0); NEUTROPHILS # 12.8 10^3/uL (1.5-8.5); NEUTROPHILS % 84.2 % (36.0-66.0); PLATELET COUNT, AUTOMATED 143 10^3/uL (150-450); RED BLOOD COUNT 4.98 10^6/uL (4.30-6.10); WHITE BLOOD COUNT 15.2 10^3/uL (4.0-10.0)
[2021-10-09 08:15] LABS: ALBUMIN 2.1 GM/DL (3.2-5.2); ALT/SGPT 84 U/L (12-78); BILIRUBIN,TOTAL 0.6 MG/DL (0.2-1.0); BLOOD UREA NITROGEN 46 MG/DL (7-18); CALCIUM LEVEL 7.5 MG/DL (8.8-10.2); CARBON DIOXIDE LEVEL 29 MEQ/L (21-32); CHLORIDE LEVEL 108 MEQ/L (98-107); CREATININE FOR GFR 1.05 MG/DL (0.70-1.30); GLOMERULAR FILTRATION RATE > 60.0 (>49); GLUCOSE, FASTING 108 MG/DL (70-100); POTASSIUM SERUM 4.4 MEQ/L (3.5-5.1); SODIUM LEVEL 144 MEQ/L (136-145); TOTAL PROTEIN 4.7 GM/DL (6.4-8.2)
[2021-10-09] MEDS: ALBUTEROL 90 MCG/ACT 8GM HFA INHALER INH SCH ×5 (08:21→21:33)
[2021-10-09] MEDS: HumaLOG INSULIN (NovoLOG) PER UNIT SC SCH ×4 (08:30→20:06)
[2021-10-09] MEDS: dexameTHASONE 20MG/5ML VIAL (J1100 PER 1MG) IV SCH ×2 (09:13→19:55)
[2021-10-09] MEDS: LEVEMIR (INSULIN DETEMIR) 1 UNITS/0.01ML SC SCH ×2 (09:13→20:02)
[2021-10-09] MEDS: LACTOBACILLUS ACIDOPHILUS CAP (BACID) PO SCH (09:13)
[2021-10-09] MEDS: TAMSULOSIN 0.4 MG CAP PO SCH (09:13)
[2021-10-09] MEDS: ENOXAPARIN 40MG/0.4ML SYRINGE (J1650 PER 10MG) SC SCH (09:13)
[2021-10-09] MEDS: BARICITINIB 2MG TABLET (OLUMIANT) FOR EUA PO SCH (09:14)
[2021-10-09] MEDS: PANTOPRAZOLE 40MG TAB (PROTONIX) PO SCH ×2 (09:14→19:50)
[2021-10-09] MEDS: LORATADINE 10 MG TAB PO SCH (09:15)
[2021-10-09] MEDS: ASPIRIN 81MG ENTERIC TABLET PO SCH (09:15)
[2021-10-09] MEDS: MYCOPHENOLATE MOFETIL 250 MG CAP (J7517) PO SCH ×2 (09:15→19:50)
[2021-10-09] MEDS: allopurinoL 300 MG TAB PO SCH (09:15)
[2021-10-09] MEDS: MUPIROCIN 2% OINT 22 GM TUBE TOP SCH ×2 (09:16→20:11)
[2021-10-09] MEDS: hydrOXYzine 25 MG TAB PO PRN ×3 (11:00→23:59)
[2021-10-10] VITALS (24 sets, daily range): BP systolic 116–163; BP diastolic 71–91
[2021-10-10] MEDS: ACETAMINOPHEN TAB 650MG DOSE (2X325MG) PO PRN ×2 (01:40→19:31)
[2021-10-10 04:59] LABS: BASO % 0.2 % (0.0-1.0); HEMATOCRIT 40.7 % (42.0-52.0); HEMOGLOBIN 13.1 g/dl (13.5-17.5); LYMPH # 0.4 10^3/uL (1.5-5.0); LYMPH % 2.4 % (24.0-44.0); MEAN CORPUSCULAR HGB CONC 32.2 g/dl (32.0-36.5); MEAN CORPUSCULAR VOLUME 93.1 fl (80.0-96.0); MONO # 1.1 10^3/uL (0.0-0.8); MONO % 7.7 % (2.0-8.0); NEUTROPHILS # 12.7 10^3/uL (1.5-8.5); PLATELET COUNT, AUTOMATED 147 10^3/uL (150-450); RED BLOOD COUNT 4.37 10^6/uL (4.30-6.10); WHITE BLOOD COUNT 14.7 10^3/uL (4.0-10.0)
[2021-10-10 05:33] LABS: BLOOD UREA NITROGEN 45 MG/DL (7-18); CARBON DIOXIDE LEVEL 31 MEQ/L (21-32); CHLORIDE LEVEL 100 MEQ/L (98-107); CREATININE FOR GFR 1.28 MG/DL (0.70-1.30); GLOMERULAR FILTRATION RATE > 60.0 (>49); GLUCOSE, FASTING 316 MG/DL (70-100); POTASSIUM SERUM 4.7 MEQ/L (3.5-5.1); SODIUM LEVEL 138 MEQ/L (136-145)
[2021-10-10] MEDS: NYSTATIN 500,000 U/5 ML SUSP UDC SS SCH ×3 (06:00→18:34)
[2021-10-10] MEDS: ALBUTEROL 90 MCG/ACT 8GM HFA INHALER INH SCH ×4 (07:52→20:49)
[2021-10-10] MEDS: allopurinoL 300 MG TAB PO SCH (08:37)
[2021-10-10] MEDS: TAMSULOSIN 0.4 MG CAP PO SCH (08:37)
[2021-10-10] MEDS: LACTOBACILLUS ACIDOPHILUS CAP (BACID) PO SCH (08:37)
[2021-10-10] MEDS: PANTOPRAZOLE 40MG TAB (PROTONIX) PO SCH ×2 (08:37→21:48)
[2021-10-10] MEDS: ASPIRIN 81MG ENTERIC TABLET PO SCH (08:37)
[2021-10-10] MEDS: dexameTHASONE 20MG/5ML VIAL (J1100 PER 1MG) IV SCH ×2 (08:38→21:51)
[2021-10-10] MEDS: ENOXAPARIN 40MG/0.4ML SYRINGE (J1650 PER 10MG) SC SCH (08:38)
[2021-10-10] MEDS: LORATADINE 10 MG TAB PO SCH (08:38)
[2021-10-10] MEDS: MYCOPHENOLATE MOFETIL 250 MG CAP (J7517) PO SCH ×2 (08:39→21:49)
[2021-10-10] MEDS: LEVEMIR (INSULIN DETEMIR) 1 UNITS/0.01ML SC SCH ×2 (08:40→21:50)
[2021-10-10] MEDS: MUPIROCIN 2% OINT 22 GM TUBE TOP SCH ×2 (08:40→21:51)
[2021-10-10] MEDS: HumaLOG INSULIN (NovoLOG) PER UNIT SC SCH ×4 (08:45→21:50)
[2021-10-10] MEDS: hydrOXYzine 25 MG TAB PO PRN ×2 (11:08→21:48)
[2021-10-10] MEDS ORDERED: LIDOCAINE 1% MDV 20ML VIAL As Ordered ONE (15:44)
[2021-10-10] MEDS ORDERED: KETOROLAC 30 MG/ML 1ML VIAL IV ONE (19:45)
[2021-10-11] VITALS (25 sets, daily range): BP systolic 87–147; BP diastolic 60–99
[2021-10-11] MEDS: NYSTATIN 500,000 U/5 ML SUSP UDC SS SCH ×5 (01:15→23:51)
[2021-10-11] MEDS: ACETAMINOPHEN TAB 650MG DOSE (2X325MG) PO PRN (04:39)
[2021-10-11 05:43] LABS: ALBUMIN 1.7 GM/DL (3.2-5.2); ALT/SGPT 94 U/L (12-78); BILIRUBIN,TOTAL 0.5 MG/DL (0.2-1.0); BLOOD UREA NITROGEN 54 MG/DL (7-18); CALCIUM LEVEL 6.8 MG/DL (8.8-10.2); CARBON DIOXIDE LEVEL 26 MEQ/L (21-32); CHLORIDE LEVEL 105 MEQ/L (98-107); CREATININE FOR GFR 1.27 MG/DL (0.70-1.30); GLOMERULAR FILTRATION RATE > 60.0 (>49); GLUCOSE, FASTING 141 MG/DL (70-100); MAGNESIUM LEVEL 2.5 MG/DL (1.8-2.4); PHOSPHORUS LEVEL 2.2 MG/DL (2.5-4.9); POTASSIUM SERUM 5.4 MEQ/L (3.5-5.1); SODIUM LEVEL 137 MEQ/L (136-145); TOTAL PROTEIN 4.8 GM/DL (6.4-8.2)
[2021-10-11 08:09] LABS: BASO % 0.2 % (0.0-1.0); HEMATOCRIT 42.2 % (42.0-52.0); HEMOGLOBIN 13.8 g/dl (13.5-17.5); LYMPH # 0.4 10^3/uL (1.5-5.0); LYMPH % 1.9 % (24.0-44.0); MEAN CORPUSCULAR HEMOGLOBIN 29.4 pg (27.0-33.0); MEAN CORPUSCULAR HGB CONC 32.7 g/dl (32.0-36.5); MONO # 1.2 10^3/uL (0.0-0.8); MONO % 6.2 % (2.0-8.0); NEUTROPHILS % 89.2 % (36.0-66.0); PLATELET COUNT, AUTOMATED 152 10^3/uL (150-450); RED BLOOD COUNT 4.69 10^6/uL (4.30-6.10); WHITE BLOOD COUNT 20.1 10^3/uL (4.0-10.0)
[2021-10-11] MEDS: PANTOPRAZOLE 40MG TAB (PROTONIX) PO SCH ×2 (08:32→20:36)
[2021-10-11] MEDS: ASPIRIN 81MG ENTERIC TABLET PO SCH (08:32)
[2021-10-11] MEDS: TAMSULOSIN 0.4 MG CAP PO SCH (08:32)
[2021-10-11] MEDS: LORATADINE 10 MG TAB PO SCH (08:32)
[2021-10-11] MEDS: hydrOXYzine 25 MG TAB PO PRN ×3 (08:32→23:48)
[2021-10-11] MEDS: LACTOBACILLUS ACIDOPHILUS CAP (BACID) PO SCH (08:32)
[2021-10-11] MEDS: ENOXAPARIN 40MG/0.4ML SYRINGE (J1650 PER 10MG) SC SCH (08:32)
[2021-10-11] MEDS: allopurinoL 300 MG TAB PO SCH (08:32)
[2021-10-11] MEDS: dexameTHASONE 20MG/5ML VIAL (J1100 PER 1MG) IV SCH ×2 (08:33→20:36)
[2021-10-11] MEDS: HumaLOG INSULIN (NovoLOG) PER UNIT SC SCH ×4 (08:33→20:57)
[2021-10-11] MEDS: MYCOPHENOLATE MOFETIL 250 MG CAP (J7517) PO SCH ×2 (08:34→20:37)
[2021-10-11] MEDS: MUPIROCIN 2% OINT 22 GM TUBE TOP SCH ×2 (08:34→23:49)
[2021-10-11] MEDS: LEVEMIR (INSULIN DETEMIR) 1 UNITS/0.01ML SC SCH ×2 (09:00→20:36)
[2021-10-11] MEDS: ALBUTEROL 90 MCG/ACT 8GM HFA INHALER INH SCH ×4 (09:52→18:10)
[2021-10-11] MEDS ORDERED: oxyCODONE 5MG TAB PO ONE (10:00)
[2021-10-11] MEDS ORDERED: HumaLOG INSULIN (NovoLOG) PER UNIT SC ONE ×2 (11:15→16:15)
[2021-10-11 12:21] LABS: CALCIUM LEVEL 7.2 MG/DL (8.8-10.2); CREATININE FOR GFR 1.46 MG/DL (0.70-1.30); GLOMERULAR FILTRATION RATE 52.3 (>49); MAGNESIUM LEVEL 2.6 MG/DL (1.8-2.4); PHOSPHORUS LEVEL 2.5 MG/DL (2.5-4.9); POTASSIUM SERUM 5.4 MEQ/L (3.5-5.1)
[2021-10-11] MEDS ORDERED: MIDAZOLAM INJ 2MG/2ML VIAL (J2250 PER 1MG) As Ordered ONE ×2 (12:33→12:34)
[2021-10-11] MEDS ORDERED: LIDOCAINE 1% MDV 20ML VIAL As Ordered ONE (12:34)
[2021-10-11] MEDS ORDERED: LIDOCAINE 1% MDV 20ML VIAL SC ONE (12:35)
[2021-10-11] MEDS ORDERED: MIDAZOLAM INJ 2MG/2ML VIAL (J2250 PER 1MG) IV ONE ×2 (12:50→12:53)
[2021-10-11] MEDS ORDERED: flumazeniL 0.5 MG/5 ML VIAL As Ordered ONE (12:57)
[2021-10-11] MEDS ORDERED: flumazeniL 0.5 MG/5 ML VIAL IV STA (12:58)
[2021-10-11] MEDS ORDERED: FUROSEMIDE 40MG/4ML VIAL (J1940) IV ONE (16:10)
[2021-10-11] MEDS ORDERED: CALCIUM GLUCONATE 1,000 MG in D5W MINI-BAG PLUS 100 ML IV ONE (17:00)
[2021-10-11] MEDS: oxyCODONE 5MG TAB PO PRN ×2 (17:26→23:49)
[2021-10-11 20:27] LABS: CALCIUM LEVEL 7.5 MG/DL (8.8-10.2); CREATININE FOR GFR 1.44 MG/DL (0.70-1.30); GLOMERULAR FILTRATION RATE 53.1 (>49); POTASSIUM SERUM 4.9 MEQ/L (3.5-5.1)
[2021-10-12] VITALS (18 sets, daily range): BP systolic 106–149; BP diastolic 64–97
[2021-10-12 04:49] LABS: BASO % 0.2 % (0.0-1.0); EOS # 0.1 10^3/uL (0.0-0.5); EOS % 0.3 % (0.0-3.0); HEMATOCRIT 41.7 % (42.0-52.0); HEMOGLOBIN 13.5 g/dl (13.5-17.5); LYMPH # 0.5 10^3/uL (1.5-5.0); LYMPH % 2.3 % (24.0-44.0); MEAN CORPUSCULAR HEMOGLOBIN 29.9 pg (27.0-33.0); MEAN CORPUSCULAR HGB CONC 32.4 g/dl (32.0-36.5); MEAN CORPUSCULAR VOLUME 92.5 fl (80.0-96.0); MONO # 1.1 10^3/uL (0.0-0.8); MONO % 5.7 % (2.0-8.0); NEUTROPHILS # 17.4 10^3/uL (1.5-8.5); NEUTROPHILS % 88.8 % (36.0-66.0); PLATELET COUNT, AUTOMATED 138 10^3/uL (150-450); RED BLOOD COUNT 4.51 10^6/uL (4.30-6.10); WHITE BLOOD COUNT 19.7 10^3/uL (4.0-10.0)
[2021-10-12 05:23] LABS: ALBUMIN 1.8 GM/DL (3.2-5.2); BILIRUBIN,TOTAL 0.6 MG/DL (0.2-1.0); CALCIUM LEVEL 7.3 MG/DL (8.8-10.2); CREATININE FOR GFR 1.32 MG/DL (0.70-1.30); GLOMERULAR FILTRATION RATE 58.7 (>49); MAGNESIUM LEVEL 2.5 MG/DL (1.8-2.4); PHOSPHORUS LEVEL 3.5 MG/DL (2.5-4.9); POTASSIUM SERUM 4.9 MEQ/L (3.5-5.1); TOTAL PROTEIN 4.8 GM/DL (6.4-8.2)
[2021-10-12] MEDS: NYSTATIN 500,000 U/5 ML SUSP UDC SS SCH ×3 (05:57→18:07)
[2021-10-12] MEDS: HEPARIN SOD (PORCINE) 5000UNITS/ML 1ML VIAL/SYRINGE SQ SCH ×3 (05:58→21:08)
[2021-10-12] MEDS: hydrOXYzine 25 MG TAB PO PRN ×3 (05:58→20:40)
[2021-10-12] MEDS: oxyCODONE 5MG TAB PO PRN ×3 (05:58→20:40)
[2021-10-12] MEDS: HumaLOG INSULIN (NovoLOG) PER UNIT SC SCH ×4 (07:30→20:41)
[2021-10-12] MEDS: ALBUTEROL 90 MCG/ACT 8GM HFA INHALER INH SCH ×4 (07:56→19:13)
[2021-10-12] MEDS: LEVEMIR (INSULIN DETEMIR) 1 UNITS/0.01ML SC SCH ×2 (09:00→20:42)
[2021-10-12] MEDS: dexameTHASONE 20MG/5ML VIAL (J1100 PER 1MG) IV SCH ×2 (09:18→20:41)
[2021-10-12] MEDS: LORATADINE 10 MG TAB PO SCH (09:19)
[2021-10-12] MEDS: TAMSULOSIN 0.4 MG CAP PO SCH (09:19)
[2021-10-12] MEDS: PANTOPRAZOLE 40MG TAB (PROTONIX) PO SCH ×2 (09:19→20:40)
[2021-10-12] MEDS: allopurinoL 300 MG TAB PO SCH (09:19)
[2021-10-12] MEDS: ASPIRIN 81MG ENTERIC TABLET PO SCH (09:19)
[2021-10-12] MEDS: MYCOPHENOLATE MOFETIL 250 MG CAP (J7517) PO SCH ×2 (09:28→20:43)
[2021-10-12] MEDS: LACTOBACILLUS ACIDOPHILUS CAP (BACID) PO SCH (09:31)
[2021-10-12] MEDS: MUPIROCIN 2% OINT 22 GM TUBE TOP SCH ×2 (09:32→20:43)
[2021-10-12] MEDS ORDERED: FUROSEMIDE 40MG/4ML VIAL (J1940) IV ONE (10:30)
[2021-10-13] VITALS (41 sets, daily range): BP systolic 63–165; BP diastolic 45–117
[2021-10-13] MEDS: NYSTATIN 500,000 U/5 ML SUSP UDC SS SCH ×4 (00:09→17:14)
[2021-10-13] MEDS: hydrOXYzine 25 MG TAB PO PRN ×2 (02:13→09:52)
[2021-10-13] MEDS: oxyCODONE 5MG TAB PO PRN (02:13)
[2021-10-13 04:48] LABS: BASO # 0.1 10^3/uL (0.0-0.2); BASO % 0.4 % (0.0-1.0); HEMATOCRIT 41.5 % (42.0-52.0); HEMOGLOBIN 13.5 g/dl (13.5-17.5); LYMPH # 0.3 10^3/uL (1.5-5.0); LYMPH % 1.4 % (24.0-44.0); MEAN CORPUSCULAR HEMOGLOBIN 29.6 pg (27.0-33.0); MEAN CORPUSCULAR HGB CONC 32.5 g/dl (32.0-36.5); MONO # 1.2 10^3/uL (0.0-0.8); MONO % 4.9 % (2.0-8.0); NEUTROPHILS # 21.1 10^3/uL (1.5-8.5); NEUTROPHILS % 89.7 % (36.0-66.0); PLATELET COUNT, AUTOMATED 150 10^3/uL (150-450); RED BLOOD COUNT 4.56 10^6/uL (4.30-6.10); WHITE BLOOD COUNT 23.6 10^3/uL (4.0-10.0)
[2021-10-13 05:06] LABS: ALT/SGPT 124 U/L (12-78); BILIRUBIN,TOTAL 0.6 MG/DL (0.2-1.0); BLOOD UREA NITROGEN 55 MG/DL (7-18); CALCIUM LEVEL 7.3 MG/DL (8.8-10.2); CARBON DIOXIDE LEVEL 31 MEQ/L (21-32); CHLORIDE LEVEL 102 MEQ/L (98-107); GLOMERULAR FILTRATION RATE > 60.0 (>49); GLUCOSE, FASTING 106 MG/DL (70-100); POTASSIUM SERUM 4.5 MEQ/L (3.5-5.1); SODIUM LEVEL 141 MEQ/L (136-145); TOTAL PROTEIN 4.5 GM/DL (6.4-8.2)
[2021-10-13 05:16] LABS: MAGNESIUM LEVEL 2.6 MG/DL (1.8-2.4)
[2021-10-13] MEDS: ACETAMINOPHEN TAB 650MG DOSE (2X325MG) PO PRN (05:39)
[2021-10-13] MEDS: HEPARIN SOD (PORCINE) 5000UNITS/ML 1ML VIAL/SYRINGE SQ SCH ×3 (06:35→21:50)
[2021-10-13] MEDS: HumaLOG INSULIN (NovoLOG) PER UNIT SC SCH ×3 (07:30→17:27)
[2021-10-13] MEDS: ALBUTEROL 90 MCG/ACT 8GM HFA INHALER INH SCH ×4 (08:02→19:43)
[2021-10-13] MEDS: LEVEMIR (INSULIN DETEMIR) 1 UNITS/0.01ML SC SCH (09:00)
[2021-10-13] MEDS ORDERED: BACTRIM 160MG/800MG DS TAB PO SCH (09:00)
[2021-10-13] MEDS: ASPIRIN 81MG ENTERIC TABLET PO SCH (09:52)
[2021-10-13] MEDS: TAMSULOSIN 0.4 MG CAP PO SCH (09:52)
[2021-10-13] MEDS: LORATADINE 10 MG TAB PO SCH (09:52)
[2021-10-13] MEDS: allopurinoL 300 MG TAB PO SCH (09:52)
[2021-10-13] MEDS: dexameTHASONE 20MG/5ML VIAL (J1100 PER 1MG) IV SCH ×2 (09:52→21:51)
[2021-10-13] MEDS: MYCOPHENOLATE MOFETIL 250 MG CAP (J7517) PO SCH ×2 (09:52→21:51)
[2021-10-13] MEDS: PANTOPRAZOLE 40MG TAB (PROTONIX) PO SCH ×2 (09:52→21:51)
[2021-10-13] MEDS: MUPIROCIN 2% OINT 22 GM TUBE TOP SCH ×2 (09:53→21:55)
[2021-10-13] MEDS: LACTOBACILLUS ACIDOPHILUS CAP (BACID) PO SCH (09:54)
[2021-10-13] MEDS ORDERED: HALOPERIDOL 5MG/ML VIAL (J1630 PER 1) IM ONE (10:45)
[2021-10-13] MEDS ORDERED: FUROSEMIDE 40MG/4ML VIAL (J1940) IV ONE (11:00)
[2021-10-13] MEDS ORDERED: MORPHINE 2 MG/ML 1ML VIAL (J2270) As Ordered ONE (12:26)
[2021-10-13] MEDS ORDERED: MORPHINE 2 MG/ML 1ML VIAL (J2270) IV ONE (12:30)
[2021-10-13] MEDS ORDERED: PHENYLEPHRINE 10MG/ML 1ML VIAL (J2370 PER 1) As Ordered ONE (14:18)
[2021-10-13] MEDS ORDERED: SUCCINYLCHOLINE INJ 200 MG/10 ML VIAL (J0330) IV STA (14:20)
[2021-10-13] MEDS ORDERED: ETOMIDATE INJ 20MG/10ML VIAL IV STA (14:20)
[2021-10-13] MEDS ORDERED: MIDAZOLAM INJ 2MG/2ML VIAL (J2250 PER 1MG) As Ordered ONE ×2 (14:31→14:46)
[2021-10-13] MEDS ORDERED: PROPOFOL 1,000 MG/100 ML VIAL As Ordered ONE (14:31)
[2021-10-13] MEDS ORDERED: REFRIGERATOR IV KEYS XX PRN (14:40)
[2021-10-13] MEDS ORDERED: MIDAZOLAM INJ 2MG/2ML VIAL (J2250 PER 1MG) IV ONE ×2 (14:50→15:00)
[2021-10-13 15:20] LABS: ABG BASE EXCESS 2.6 (-2.0-2.0); ABG HCO3 29.7 MEQ/L (22.0-26.0); ABG O2 SATURATION 67.2 % (95.0-99.0); ABG PARTIAL PRESSURE CO2 55.6 mmHg (35.0-45.0); ABG TOTAL CO2 31.4 MEQ/L (23.0-31.0); ABG pH (ARTERIAL) 7.345 UNITS (7.350-7.450)
[2021-10-13 15:22] LABS: ABG PARTIAL PRESSURE O2 37.4 mmHg (75.0-100.0)
[2021-10-13] MEDS ORDERED: NOREPINEPHRINE 4 MG/4 ML AMP As Ordered ONE (15:28)
[2021-10-13] MEDS ORDERED: CISATRACURIUM 10MG/ML 20 ML VIAL As Ordered ONE (15:44)
[2021-10-13 15:58] LABS: ABG BASE EXCESS 0.4 (-2.0-2.0); ABG O2 SATURATION 98.5 % (95.0-99.0); ABG PARTIAL PRESSURE CO2 45.4 mmHg (35.0-45.0); ABG PARTIAL PRESSURE O2 137.1 mmHg (75.0-100.0); ABG STANDARD HCO3 24.8 MEQ/L (22.0-26.0); ABG TOTAL CO2 27.3 MEQ/L (23.0-31.0); ABG pH (ARTERIAL) 7.375 UNITS (7.350-7.450)
[2021-10-13] MEDS: MIDAZOLAM HCL 100 MG in D5W 80 ML IV SCH (16:03)
[2021-10-13] MEDS: fentaNYL CITRATE 1,000 MCG in NS 80 ML IV SCH (16:04)
[2021-10-13] MEDS ORDERED: CISATRACURIUM 10MG/ML 20 ML VIAL IV ONE (16:15)
[2021-10-13] MEDS ORDERED: LACTATED RINGER'S 1000 ML IV ONE (16:15)
[2021-10-13] MEDS ORDERED: propofoL 1,000 MG in IV 1 EA IV SCH (16:15)
[2021-10-13] MEDS: NOREPINEPHRINE BITARTRATE 8 MG in D5W 492 ML IV SCH (17:08)
[2021-10-13] MEDS ORDERED: CISATRACURIUM 10MG/ML 20 ML VIAL IV PRN (17:10)
[2021-10-13] MEDS: MIDAZOLAM INJ 2MG/2ML VIAL (J2250 PER 1MG) IV PRN (18:16)
[2021-10-13] MEDS ORDERED: SUCCINYLCHOLINE 100 MG/5 ML SYRINGE (J0330) ONE (19:32)
[2021-10-13] MEDS ORDERED: ETOMIDATE INJ 20MG/10ML VIAL ONE (19:32)
[2021-10-13] MEDS ORDERED: LEVEMIR (INSULIN DETEMIR) 1 UNITS/0.01ML SC SCH (21:00)
[2021-10-13] MEDS: CISATRACURIUM 200 MG in NS 480 ML IV SCH (21:55)
[2021-10-14] VITALS (48 sets, daily range): BP systolic 81–148; BP diastolic 54–90
[2021-10-14] MEDS: NOREPINEPHRINE BITARTRATE 8 MG in D5W 492 ML IV SCH (00:30)
[2021-10-14] MEDS: HumaLOG INSULIN (NovoLOG) PER UNIT SC SCH ×4 (00:34→17:03)
[2021-10-14] MEDS: fentaNYL CITRATE 1,000 MCG in NS 80 ML IV SCH (01:23)
[2021-10-14] MEDS: MIDAZOLAM HCL 100 MG in D5W 80 ML IV SCH ×2 (01:55→18:22)
[2021-10-14 04:55] LABS: BASO # 0.1 10^3/uL (0.0-0.2); BASO % 0.3 % (0.0-1.0); HEMATOCRIT 39.3 % (42.0-52.0); HEMOGLOBIN 12.5 g/dl (13.5-17.5); LYMPH # 0.4 10^3/uL (1.5-5.0); LYMPH % 1.9 % (24.0-44.0); MEAN CORPUSCULAR HEMOGLOBIN 29.6 pg (27.0-33.0); MEAN CORPUSCULAR HGB CONC 31.8 g/dl (32.0-36.5); MEAN CORPUSCULAR VOLUME 92.9 fl (80.0-96.0); MONO # 0.9 10^3/uL (0.0-0.8); MONO % 4.5 % (2.0-8.0); NEUTROPHILS # 17.2 10^3/uL (1.5-8.5); NEUTROPHILS % 90.4 % (36.0-66.0); PLATELET COUNT, AUTOMATED 106 10^3/uL (150-450); RED BLOOD COUNT 4.23 10^6/uL (4.30-6.10)
[2021-10-14 05:12] LABS: ALBUMIN 1.8 GM/DL (3.2-5.2); BILIRUBIN,TOTAL 0.8 MG/DL (0.2-1.0); CALCIUM LEVEL 6.8 MG/DL (8.8-10.2); CREATININE FOR GFR 1.56 MG/DL (0.70-1.30); GLOMERULAR FILTRATION RATE 48.4 (>49); MAGNESIUM LEVEL 2.6 MG/DL (1.8-2.4); PHOSPHORUS LEVEL 5.8 MG/DL (2.5-4.9); TOTAL PROTEIN 4.2 GM/DL (6.4-8.2)
[2021-10-14] MEDS: NYSTATIN 500,000 U/5 ML SUSP UDC SS SCH ×2 (05:14)
[2021-10-14 06:13] LABS: ABG BASE EXCESS -0.5 (-2.0-2.0); ABG HCO3 24.8 MEQ/L (22.0-26.0); ABG O2 SATURATION 98.6 % (95.0-99.0); ABG PARTIAL PRESSURE CO2 42.9 mmHg (35.0-45.0); ABG STANDARD HCO3 24.1 MEQ/L (22.0-26.0); ABG TOTAL CO2 26.1 MEQ/L (23.0-31.0); ABG pH (ARTERIAL) 7.379 UNITS (7.350-7.450)
[2021-10-14] MEDS: HEPARIN SOD (PORCINE) 5000UNITS/ML 1ML VIAL/SYRINGE SQ SCH ×3 (06:45→21:21)
[2021-10-14] MEDS: ALBUTEROL 90 MCG/ACT 8GM HFA INHALER INH SCH ×4 (07:36→19:35)
[2021-10-14] MEDS: MYCOPHENOLATE MOFETIL 250 MG CAP (J7517) PO SCH (09:00)
[2021-10-14] MEDS ORDERED: LEVEMIR (INSULIN DETEMIR) 1 UNITS/0.01ML SC SCH (09:00)
[2021-10-14] MEDS ORDERED: PANTOPRAZOLE 40MG VIAL (C9113 PER 1) IV SCH (09:00)
[2021-10-14] MEDS: dexameTHASONE 20MG/5ML VIAL (J1100 PER 1MG) IV SCH ×2 (09:18→21:21)
[2021-10-14] MEDS: LACTOBACILLUS ACIDOPHILUS CAP (BACID) PO SCH (09:18)
[2021-10-14] MEDS: allopurinoL 300 MG TAB PO SCH (09:18)
[2021-10-14] MEDS: MUPIROCIN 2% OINT 22 GM TUBE TOP SCH ×2 (09:19→21:21)
[2021-10-14] MEDS: ASPIRIN 81 MG CHEW TABLET PEG SCH (09:33)
[2021-10-14] MEDS: CISATRACURIUM 200 MG in NS 480 ML IV SCH (21:00)
[2021-10-14] MEDS: INSULIN REGULAR IN 0.9 % NACL 100 UNIT in IV 1 EA IV SCH ×2 (23:17)
[2021-10-14] MEDS: INSULIN IV RATE CHANGE DOCUMENTATION ML/HR XX SCH (23:28)
[2021-10-15] VITALS (54 sets, daily range): BP systolic 76–124; BP diastolic 48–75
[2021-10-15] MEDS: INSULIN IV RATE CHANGE DOCUMENTATION ML/HR XX SCH ×6 (00:49→22:57)
[2021-10-15] MEDS: fentaNYL CITRATE 1,000 MCG in NS 80 ML IV SCH ×3 (01:19→18:40)
[2021-10-15] MEDS: CISATRACURIUM 200 MG in NS 480 ML IV SCH (03:09)
[2021-10-15 04:40] LABS: HEMATOCRIT 45.6 % (42.0-52.0); HEMOGLOBIN 13.9 g/dl (13.5-17.5); MEAN CORPUSCULAR HEMOGLOBIN 29.6 pg (27.0-33.0); MEAN CORPUSCULAR HGB CONC 30.5 g/dl (32.0-36.5); PLATELET COUNT, AUTOMATED 137 10^3/uL (150-450); WHITE BLOOD COUNT 27.6 10^3/uL (4.0-10.0)
[2021-10-15 04:51] LABS: ALBUMIN 1.9 GM/DL (3.2-5.2); BILIRUBIN,TOTAL 0.6 MG/DL (0.2-1.0); CALCIUM LEVEL 7.3 MG/DL (8.8-10.2); CREATININE FOR GFR 2.33 MG/DL (0.70-1.30); GLOMERULAR FILTRATION RATE 30.5 (>49); POTASSIUM SERUM 5.2 MEQ/L (3.5-5.1); TOTAL PROTEIN 4.5 GM/DL (6.4-8.2)
[2021-10-15] MEDS: HEPARIN SOD (PORCINE) 5000UNITS/ML 1ML VIAL/SYRINGE SQ SCH ×3 (05:34→22:13)
[2021-10-15] MEDS: INSULIN REGULAR IN 0.9 % NACL 100 UNIT in IV 1 EA IV SCH ×6 (05:34→23:10)
[2021-10-15] MEDS: ALBUTEROL 90 MCG/ACT 8GM HFA INHALER INH SCH ×4 (07:43→19:17)
[2021-10-15 07:56] LABS: ABG pH (ARTERIAL) 7.277 UNITS (7.350-7.450)
[2021-10-15 07:57] LABS: ABG BASE EXCESS -2.1 (-2.0-2.0); ABG HCO3 25.6 MEQ/L (22.0-26.0); ABG O2 SATURATION 96.6 % (95.0-99.0); ABG PARTIAL PRESSURE CO2 56.2 mmHg (35.0-45.0); ABG PARTIAL PRESSURE O2 93.7 mmHg (75.0-100.0); ABG STANDARD HCO3 22.7 MEQ/L (22.0-26.0); ABG TOTAL CO2 27.4 MEQ/L (23.0-31.0)
[2021-10-15] MEDS: allopurinoL 300 MG TAB PO SCH (08:22)
[2021-10-15] MEDS: LACTOBACILLUS ACIDOPHILUS CAP (BACID) PO SCH (08:22)
[2021-10-15] MEDS: ASPIRIN 81 MG CHEW TABLET PEG SCH (08:22)
[2021-10-15] MEDS: PANTOPRAZOLE 40MG VIAL (C9113 PER 1) IV SCH (08:23)
[2021-10-15] MEDS: dexameTHASONE 4 MG/ML 1ML VIAL (J1100 PER 1MG) IV SCH (08:24)
[2021-10-15] MEDS: MUPIROCIN 2% OINT 22 GM TUBE TOP SCH ×2 (08:24→20:20)
[2021-10-15 08:54] LABS: MAGNESIUM LEVEL 3.2 MG/DL (1.8-2.4)
[2021-10-15] MEDS: DEXTROSE 50% 50 ML SYRINGE IV PRN (11:20)
[2021-10-15] MEDS ORDERED: INSULIN REGULAR IN 0.9 % NACL 100 UNIT in IV 1 EA IV SCH ×2 (11:48)
[2021-10-15] MEDS: MIDAZOLAM HCL 100 MG in D5W 80 ML IV SCH (12:14)
[2021-10-15 12:32] LABS: CALCIUM LEVEL 7.2 MG/DL (8.8-10.2); CREATININE FOR GFR 2.34 MG/DL (0.70-1.30); GLOMERULAR FILTRATION RATE 30.3 (>49); POTASSIUM SERUM 5.2 MEQ/L (3.5-5.1)
[2021-10-15] MEDS: SENNA 8.6 MG TAB (SENOKOT) FT SCH ×2 (13:03→20:20)
[2021-10-15] MEDS: PATIROMER SORBITEX CALCIUM 8.4 GM POWDER PACKET (VELTASSA) PO SCH (16:22)
[2021-10-15] MEDS ORDERED: LR 500 ML IV ONE (21:15)
[2021-10-15] MEDS: MEROPENEM INJ 1 GM in IV 1 EA IV SCH (22:13)
[2021-10-15] MEDS: NOREPINEPHRINE BITARTRATE 8 MG in D5W 492 ML IV SCH (23:08)
[2021-10-16] VITALS (81 sets, daily range): BP systolic 83–121; BP diastolic 39–59
[2021-10-16] MEDS ORDERED: VANCOMYCIN HCL 750 MG, VIAL MATE ADAPTER 1 EACH in NS 250 ML IV ONE ×5 (01:00→09:00)
[2021-10-16] MEDS: fentaNYL CITRATE 1,000 MCG in NS 80 ML IV SCH (02:24)
[2021-10-16] MEDS: INSULIN IV RATE CHANGE DOCUMENTATION ML/HR XX SCH ×10 (04:20→22:20)
[2021-10-16 05:51] LABS: ABG BASE EXCESS -3.8 (-2.0-2.0); ABG HCO3 24.2 MEQ/L (22.0-26.0); ABG O2 SATURATION 97.1 % (95.0-99.0); ABG PARTIAL PRESSURE CO2 56.8 mmHg (35.0-45.0); ABG PARTIAL PRESSURE O2 97.7 mmHg (75.0-100.0); ABG STANDARD HCO3 21.3 MEQ/L (22.0-26.0)
[2021-10-16 05:53] LABS: ABG pH (ARTERIAL) 7.248 UNITS (7.350-7.450)
[2021-10-16 05:55] LABS: HEMATOCRIT 43.9 % (42.0-52.0); HEMOGLOBIN 13.3 g/dl (13.5-17.5); MEAN CORPUSCULAR HEMOGLOBIN 29.8 pg (27.0-33.0); MEAN CORPUSCULAR HGB CONC 30.3 g/dl (32.0-36.5); MEAN CORPUSCULAR VOLUME 98.2 fl (80.0-96.0); PLATELET COUNT, AUTOMATED 128 10^3/uL (150-450); RED BLOOD COUNT 4.47 10^6/uL (4.30-6.10)
[2021-10-16 06:06] LABS: WHITE BLOOD COUNT 32.7 10^3/uL (4.0-10.0)
[2021-10-16 06:22] LABS: ALBUMIN 1.8 GM/DL (3.2-5.2); BILIRUBIN,TOTAL 0.7 MG/DL (0.2-1.0); CALCIUM LEVEL 7.5 MG/DL (8.8-10.2); CREATININE FOR GFR 2.93 MG/DL (0.70-1.30); GLOMERULAR FILTRATION RATE 23.4 (>49); POTASSIUM SERUM 5.4 MEQ/L (3.5-5.1); TOTAL PROTEIN 3.9 GM/DL (6.4-8.2)
[2021-10-16] MEDS: CISATRACURIUM 200 MG in NS 480 ML IV SCH (06:24)
[2021-10-16] MEDS: HEPARIN SOD (PORCINE) 5000UNITS/ML 1ML VIAL/SYRINGE SQ SCH ×3 (06:25→22:34)
[2021-10-16] MEDS: INSULIN REGULAR IN 0.9 % NACL 100 UNIT in IV 1 EA IV SCH ×4 (06:27→21:16)
[2021-10-16] MEDS: ALBUTEROL 90 MCG/ACT 8GM HFA INHALER INH SCH (08:14)
[2021-10-16] MEDS: PATIROMER SORBITEX CALCIUM 8.4 GM POWDER PACKET (VELTASSA) PO SCH (09:11)
[2021-10-16] MEDS: ASPIRIN 81 MG CHEW TABLET PEG SCH (09:16)
[2021-10-16] MEDS: LACTOBACILLUS ACIDOPHILUS CAP (BACID) PO SCH (09:16)
[2021-10-16] MEDS: SENNA 8.6 MG TAB (SENOKOT) FT SCH ×2 (09:17→20:27)
[2021-10-16] MEDS: PANTOPRAZOLE 40MG VIAL (C9113 PER 1) IV SCH (09:17)
[2021-10-16] MEDS: MUPIROCIN 2% OINT 22 GM TUBE TOP SCH ×2 (09:18→20:27)
[2021-10-16] MEDS: dexameTHASONE 4 MG/ML 1ML VIAL (J1100 PER 1MG) IV SCH (09:18)
[2021-10-16] MEDS: allopurinoL 300 MG TAB PO SCH (09:24)
[2021-10-16] MEDS: NOREPINEPHRINE BITARTRATE 8 MG in D5W 492 ML IV SCH ×4 (09:31→21:48)
[2021-10-16] MEDS: MIDAZOLAM HCL 100 MG in D5W 80 ML IV SCH ×2 (09:33→20:50)
[2021-10-16] MEDS ORDERED: ALBUTEROL 90 MCG/ACT 8GM HFA INHALER INH PRN (09:45)
[2021-10-16] MEDS ORDERED: CISATRACURIUM 10MG/ML 20 ML VIAL IV PRN (10:15)
[2021-10-16] MEDS: MEROPENEM INJ 1 GM in IV 1 EA IV SCH ×2 (10:38→22:33)
[2021-10-16] MEDS: CHLORHEXIDINE GLUCONATE 0.12 % 15ML UDC (PERIDEX ORAL RINSE) MT SCH ×2 (10:39→20:26)
[2021-10-16] MEDS: SODIUM BICARBONATE 325 MG TAB PO SCH ×3 (10:42→22:34)
[2021-10-16] MEDS: MIRALAX *UNIT DOSE* 17GM PACKET PO SCH (10:43)
[2021-10-16 17:32] LABS: CALCIUM LEVEL 7.4 MG/DL (8.8-10.2); CREATININE FOR GFR 2.86 MG/DL (0.70-1.30); GLOMERULAR FILTRATION RATE 24.1 (>49); POTASSIUM SERUM 6.1 MEQ/L (3.5-5.1)
[2021-10-16] MEDS ORDERED: DEXTROSE 50% 50 ML SYRINGE IV STA (17:57)
[2021-10-16] MEDS ORDERED: SOD POLYSTYRENE SULFONATE SUSP 15 GM/60 ML UD PO ONE (18:00)
[2021-10-16] MEDS ORDERED: HumaLOG INSULIN (NovoLOG) PER UNIT SC ONE (18:00)
[2021-10-16] MEDS ORDERED: FUROSEMIDE 100MG/10ML VIAL (J1940) IV ONE (18:00)
[2021-10-16] MEDS: MIDAZOLAM INJ 2MG/2ML VIAL (J2250 PER 1MG) IV PRN (23:50)
[2021-10-17] VITALS (124 sets, daily range): BP systolic 73–135; BP diastolic 36–68
[2021-10-17] MEDS: CISATRACURIUM 200 MG in NS 480 ML IV SCH ×4 (00:32→23:10)
[2021-10-17] MEDS: MIDAZOLAM INJ 2MG/2ML VIAL (J2250 PER 1MG) IV PRN ×2 (00:33→01:19)
[2021-10-17] MEDS: fentaNYL CITRATE 1,000 MCG in NS 80 ML IV SCH (03:00)
[2021-10-17] MEDS: MIDAZOLAM HCL 100 MG in D5W 80 ML IV SCH ×2 (03:15→19:40)
[2021-10-17] MEDS: INSULIN REGULAR IN 0.9 % NACL 100 UNIT in IV 1 EA IV SCH ×4 (04:59→22:10)
[2021-10-17] MEDS: SODIUM BICARBONATE 325 MG TAB PO SCH (05:19)
[2021-10-17] MEDS: HEPARIN SOD (PORCINE) 5000UNITS/ML 1ML VIAL/SYRINGE SQ SCH ×3 (05:23→23:02)
[2021-10-17 06:05] LABS: HEMATOCRIT 42.7 % (42.0-52.0); MEAN CORPUSCULAR HEMOGLOBIN 29.8 pg (27.0-33.0); MEAN CORPUSCULAR HGB CONC 30.4 g/dl (32.0-36.5); MEAN CORPUSCULAR VOLUME 97.9 fl (80.0-96.0); PLATELET COUNT, AUTOMATED 103 10^3/uL (150-450); RED BLOOD COUNT 4.36 10^6/uL (4.30-6.10)
[2021-10-17 06:09] LABS: WHITE BLOOD COUNT 34.1 10^3/uL (4.0-10.0)
[2021-10-17] MEDS: NOREPINEPHRINE BITARTRATE 8 MG in D5W 492 ML IV SCH ×4 (06:11→22:38)
[2021-10-17 06:15] LABS: ABG BASE EXCESS -1.6 (-2.0-2.0); ABG HCO3 27.4 MEQ/L (22.0-26.0); ABG O2 SATURATION 96.3 % (95.0-99.0); ABG PARTIAL PRESSURE O2 91.7 mmHg (75.0-100.0); ABG STANDARD HCO3 23.1 MEQ/L (22.0-26.0); ABG TOTAL CO2 29.4 MEQ/L (23.0-31.0)
[2021-10-17 06:17] LABS: ABG pH (ARTERIAL) 7.234 UNITS (7.350-7.450)
[2021-10-17 06:18] LABS: ABG PARTIAL PRESSURE CO2 66.2 mmHg (35.0-45.0)
[2021-10-17 06:22] LABS: ALBUMIN 1.6 GM/DL (3.2-5.2); BILIRUBIN,TOTAL 0.6 MG/DL (0.2-1.0); CALCIUM LEVEL 7.3 MG/DL (8.8-10.2); CREATININE FOR GFR 3.16 MG/DL (0.70-1.30); GLOMERULAR FILTRATION RATE 21.4 (>49); POTASSIUM SERUM 5.6 MEQ/L (3.5-5.1); TOTAL PROTEIN 3.9 GM/DL (6.4-8.2)
[2021-10-17] MEDS: CHLORHEXIDINE GLUCONATE 0.12 % 15ML UDC (PERIDEX ORAL RINSE) MT SCH ×2 (08:32→21:32)
[2021-10-17] MEDS: MIRALAX *UNIT DOSE* 17GM PACKET PO SCH (08:33)
[2021-10-17] MEDS: dexameTHASONE 4 MG/ML 1ML VIAL (J1100 PER 1MG) IV SCH (08:33)
[2021-10-17] MEDS: PATIROMER SORBITEX CALCIUM 8.4 GM POWDER PACKET (VELTASSA) PO SCH (08:33)
[2021-10-17] MEDS: LACTOBACILLUS ACIDOPHILUS CAP (BACID) PO SCH (08:33)
[2021-10-17] MEDS: SENNA 8.6 MG TAB (SENOKOT) FT SCH ×2 (08:34→21:33)
[2021-10-17] MEDS: allopurinoL 300 MG TAB PO SCH (08:34)
[2021-10-17] MEDS: PANTOPRAZOLE 40MG VIAL (C9113 PER 1) IV SCH (08:34)
[2021-10-17] MEDS: ASPIRIN 81 MG CHEW TABLET PEG SCH (08:34)
[2021-10-17] MEDS: MUPIROCIN 2% OINT 22 GM TUBE TOP SCH ×2 (10:52→21:33)
[2021-10-17] MEDS: MEROPENEM INJ 1 GM in IV 1 EA IV SCH (10:52)
[2021-10-17] MEDS ORDERED: NS 1,000 ML IV ONE ×3 (11:15→15:05)
[2021-10-17] MEDS ORDERED: NOREPINEPHRINE BITARTRATE 8 MG in D5W 492 ML IV SCH ×3 (12:00→14:31)
[2021-10-17] MEDS ORDERED: HumaLOG INSULIN (NovoLOG) PER UNIT SC SCH (12:00)
[2021-10-17] MEDS ORDERED: DEXTROSE 50% 50 ML SYRINGE IV PRN (13:15)
[2021-10-17] MEDS ORDERED: GLUCOSE 4GM CHEW TABLET PO PRN (13:15)
[2021-10-17] MEDS ORDERED: GLUCAGON INJ 1MG VIAL SC PRN (13:15)
[2021-10-17] MEDS: ceFAZolin SOD 1 GM in D5W MINI-BAG PLUS 50 ML IV SCH (16:33)
[2021-10-17 17:23] LABS: CALCIUM LEVEL 6.3 MG/DL (8.8-10.2); CREATININE FOR GFR 2.99 MG/DL (0.70-1.30); GLOMERULAR FILTRATION RATE 22.8 (>49); POTASSIUM SERUM 6.1 MEQ/L (3.5-5.1)
[2021-10-17] MEDS ORDERED: DEXTROSE 50% 50 ML SYRINGE IV STA (17:29)
[2021-10-17] MEDS ORDERED: HumuLIN R (REGULAR) INSULIN (NovoLIN R) **100U/ML** PER UNIT IV STA (17:29)
[2021-10-17] MEDS ORDERED: INSULIN IV RATE CHANGE DOCUMENTATION ML/HR XX SCH (17:30)
[2021-10-17] MEDS ORDERED: SOD POLYSTYRENE SULFONATE SUSP 15 GM/60 ML UD PO ONE (17:30)
[2021-10-17] MEDS ORDERED: INSULIN REGULAR IN 0.9 % NACL 100 UNIT in IV 1 EA IV SCH ×2 (17:30)
[2021-10-17] MEDS ORDERED: PATIROMER SORBITEX CALCIUM 8.4 GM POWDER PACKET (VELTASSA) PO ONE (17:40)
[2021-10-17] MEDS: VASOPRESSIN INJ 20 UNITS in NS 499 ML IV SCH (18:21)
[2021-10-18] VITALS (59 sets, daily range): BP systolic 87–128; BP diastolic 42–60
[2021-10-18] MEDS: fentaNYL CITRATE 1,000 MCG in NS 80 ML IV SCH ×2 (00:45→19:00)
[2021-10-18] MEDS: VASOPRESSIN INJ 20 UNITS in NS 499 ML IV SCH ×3 (02:05→18:25)
[2021-10-18] MEDS: INSULIN REGULAR IN 0.9 % NACL 100 UNIT in IV 1 EA IV SCH ×4 (03:56→16:44)
[2021-10-18] MEDS: ceFAZolin SOD 1 GM in D5W MINI-BAG PLUS 50 ML IV SCH (05:47)
[2021-10-18] MEDS: HEPARIN SOD (PORCINE) 5000UNITS/ML 1ML VIAL/SYRINGE SQ SCH ×3 (05:48→22:11)
[2021-10-18 06:00] LABS: HEMOGLOBIN 11.9 g/dl (13.5-17.5); MEAN CORPUSCULAR HEMOGLOBIN 30.2 pg (27.0-33.0); MEAN CORPUSCULAR HGB CONC 31.3 g/dl (32.0-36.5); MEAN CORPUSCULAR VOLUME 96.4 fl (80.0-96.0); RED BLOOD COUNT 3.94 10^6/uL (4.30-6.10); WHITE BLOOD COUNT 27.5 10^3/uL (4.0-10.0)
[2021-10-18 06:11] LABS: ABG BASE EXCESS -7.2 (-2.0-2.0); ABG HCO3 19.7 MEQ/L (22.0-26.0); ABG O2 SATURATION 97.5 % (95.0-99.0); ABG PARTIAL PRESSURE O2 103.7 mmHg (75.0-100.0); ABG STANDARD HCO3 18.6 MEQ/L (22.0-26.0); ABG TOTAL CO2 21.1 MEQ/L (23.0-31.0); ABG pH (ARTERIAL) 7.259 UNITS (7.350-7.450)
[2021-10-18 06:28] LABS: ALBUMIN 1.5 GM/DL (3.2-5.2); BILIRUBIN,TOTAL 0.7 MG/DL (0.2-1.0); CALCIUM LEVEL 6.5 MG/DL (8.8-10.2); CREATININE FOR GFR 2.9 MG/DL (0.70-1.30); GLOMERULAR FILTRATION RATE 23.7 (>49); POTASSIUM SERUM 5.9 MEQ/L (3.5-5.1); TOTAL PROTEIN 3.6 GM/DL (6.4-8.2)
[2021-10-18 07:09] LABS: PLATELET COUNT, AUTOMATED 79 10^3/uL (150-450)
[2021-10-18] MEDS: CHLORHEXIDINE GLUCONATE 0.12 % 15ML UDC (PERIDEX ORAL RINSE) MT SCH ×2 (08:46→20:48)
[2021-10-18] MEDS: NOREPINEPHRINE BITARTRATE 8 MG in D5W 492 ML IV SCH ×5 (08:52→23:00)
[2021-10-18] MEDS: MIRALAX *UNIT DOSE* 17GM PACKET PO SCH (08:52)
[2021-10-18] MEDS: PANTOPRAZOLE 40MG VIAL (C9113 PER 1) IV SCH (08:52)
[2021-10-18] MEDS: ASPIRIN 81 MG CHEW TABLET PEG SCH (08:52)
[2021-10-18] MEDS: SENNA 8.6 MG TAB (SENOKOT) FT SCH ×2 (08:52→20:49)
[2021-10-18] MEDS: dexameTHASONE 4 MG/ML 1ML VIAL (J1100 PER 1MG) IV SCH (08:53)
[2021-10-18] MEDS: MUPIROCIN 2% OINT 22 GM TUBE TOP SCH ×2 (09:00→20:49)
[2021-10-18] MEDS ORDERED: SOD POLYSTYRENE SULFONATE SUSP 15 GM/60 ML UD PO ONE (09:50)
[2021-10-18] MEDS: INSULIN IV RATE CHANGE DOCUMENTATION ML/HR XX SCH ×4 (10:10→22:45)
[2021-10-18 10:41] LABS: INR 0.97; PROTHROMBIN TIME 13.3 SECONDS (12.7-14.5)
[2021-10-18 10:42] LABS: PARTIAL THROMBOPLASTIN TIME 34.4 SECONDS (25.9-37.0)
[2021-10-18 10:45] LABS: D-DIMER QUANT 1043.4 ng/ml (<500)
[2021-10-18 10:50] LABS: RSV AMPLIFICATION NEGATIVE (NEGATIVE)
[2021-10-18] MEDS ORDERED: SODIUM CHLORIDE 0.9% INJ 10 ML SYR IV PRN (11:00)
[2021-10-18] MEDS: DEXTROSE 50% 50 ML SYRINGE IV PRN ×2 (11:30→13:35)
[2021-10-18] MEDS: MIDAZOLAM HCL 100 MG in D5W 80 ML IV SCH (11:39)
[2021-10-18] MEDS ORDERED: PATIROMER SORBITEX CALCIUM 8.4 GM POWDER PACKET (VELTASSA) PO SCH (12:00)
[2021-10-18] MEDS: ceFAZolin SOD 2 GM in IV 1 EA IV SCH (15:20)
[2021-10-18] MEDS: HEPARIN 100 UNIT/ML *20ML* SYRINGE CRRT INFUSION CRRT SCH ×3 (15:40→23:32)
[2021-10-18 18:37] LABS: HEMOGLOBIN 11.5 g/dl (13.5-17.5); MEAN CORPUSCULAR HEMOGLOBIN 30.1 pg (27.0-33.0); MEAN CORPUSCULAR HGB CONC 31.1 g/dl (32.0-36.5); MEAN CORPUSCULAR VOLUME 96.9 fl (80.0-96.0); RED BLOOD COUNT 3.82 10^6/uL (4.30-6.10); WHITE BLOOD COUNT 29.6 10^3/uL (4.0-10.0)
[2021-10-18 18:41] LABS: PLATELET COUNT, AUTOMATED 66 10^3/uL (150-450)
[2021-10-18] MEDS: CISATRACURIUM 200 MG in NS 480 ML IV SCH ×2 (18:50→21:22)
[2021-10-18 19:01] LABS: CALCIUM LEVEL 6.7 MG/DL (8.8-10.2); CREATININE FOR GFR 2.43 MG/DL (0.70-1.30); MAGNESIUM LEVEL 2.4 MG/DL (1.8-2.4); PHOSPHORUS LEVEL 3.9 MG/DL (2.5-4.9)
[2021-10-19] VITALS (35 sets, daily range): BP systolic 91–138; BP diastolic 42–70
[2021-10-19] MEDS: VASOPRESSIN INJ 20 UNITS in NS 499 ML IV SCH ×3 (02:29)
[2021-10-19] MEDS: MIDAZOLAM HCL 100 MG in D5W 80 ML IV SCH ×2 (02:32→11:01)
[2021-10-19] MEDS: INSULIN IV RATE CHANGE DOCUMENTATION ML/HR XX SCH ×2 (02:33→10:21)
[2021-10-19] MEDS: HEPARIN 100 UNIT/ML *20ML* SYRINGE CRRT INFUSION CRRT SCH ×3 (02:59→10:21)
[2021-10-19] MEDS: ceFAZolin SOD 2 GM in IV 1 EA IV SCH (02:59)
[2021-10-19] MEDS: NOREPINEPHRINE BITARTRATE 8 MG in D5W 492 ML IV SCH ×2 (04:00→06:52)
[2021-10-19 04:58] LABS: ABG BASE EXCESS -5.1 (-2.0-2.0); ABG HCO3 20.9 MEQ/L (22.0-26.0); ABG O2 SATURATION 95.3 % (95.0-99.0); ABG PARTIAL PRESSURE CO2 42.5 mmHg (35.0-45.0); ABG PARTIAL PRESSURE O2 77.7 mmHg (75.0-100.0); ABG STANDARD HCO3 20.2 MEQ/L (22.0-26.0); ABG TOTAL CO2 22.2 MEQ/L (23.0-31.0); ABG pH (ARTERIAL) 7.309 UNITS (7.350-7.450)
[2021-10-19 05:04] LABS: HEMATOCRIT 34.3 % (42.0-52.0); HEMOGLOBIN 10.7 g/dl (13.5-17.5); MEAN CORPUSCULAR HEMOGLOBIN 30.1 pg (27.0-33.0); MEAN CORPUSCULAR HGB CONC 31.2 g/dl (32.0-36.5); MEAN CORPUSCULAR VOLUME 96.6 fl (80.0-96.0); RED BLOOD COUNT 3.55 10^6/uL (4.30-6.10)
[2021-10-19 05:08] LABS: PLATELET COUNT, AUTOMATED 50 10^3/uL (150-450); WHITE BLOOD COUNT 32.9 10^3/uL (4.0-10.0)
[2021-10-19] MEDS: HEPARIN SOD (PORCINE) 5000UNITS/ML 1ML VIAL/SYRINGE SQ SCH (05:25)
[2021-10-19 05:49] LABS: ALBUMIN 1.3 GM/DL (3.2-5.2); BILIRUBIN,TOTAL 0.8 MG/DL (0.2-1.0); CREATININE FOR GFR 1.54 MG/DL (0.70-1.30); GLOMERULAR FILTRATION RATE 49.1 (>49); MAGNESIUM LEVEL 2.1 MG/DL (1.8-2.4); PHOSPHORUS LEVEL 3.5 MG/DL (2.5-4.9); POTASSIUM SERUM 4.9 MEQ/L (3.5-5.1); TOTAL PROTEIN 3.4 GM/DL (6.4-8.2)
[2021-10-19] MEDS: CALCIUM GLUCONATE 1,000 MG in D5W MINI-BAG PLUS 100 ML IV SCH ×2 (06:32→07:57)
[2021-10-19] MEDS: CISATRACURIUM 200 MG in NS 480 ML IV SCH (07:24)
[2021-10-19] MEDS: ASPIRIN 81 MG CHEW TABLET PEG SCH (07:59)
[2021-10-19] MEDS: PANTOPRAZOLE 40MG VIAL (C9113 PER 1) IV SCH (07:59)
[2021-10-19] MEDS: CHLORHEXIDINE GLUCONATE 0.12 % 15ML UDC (PERIDEX ORAL RINSE) MT SCH (07:59)
[2021-10-19] MEDS: dexameTHASONE 4 MG/ML 1ML VIAL (J1100 PER 1MG) IV SCH (07:59)
[2021-10-19] MEDS: MUPIROCIN 2% OINT 22 GM TUBE TOP SCH (09:00)
[2021-10-19] MEDS: SENNA 8.6 MG TAB (SENOKOT) FT SCH (09:00)
[2021-10-19] MEDS: fentaNYL CITRATE 1,000 MCG in NS 80 ML IV SCH ×3 (10:59)
[2021-10-19] MEDS ORDERED: MICAFUNGIN SODIUM 100 MG in D5W MINI-BAG PLUS 100 ML IV SCH (12:00)
[2021-10-19] MEDS ORDERED: PHENYLEPHRINE 10MG/ML 1ML VIAL (J2370 PER 1) As Ordered ONE (12:42)
[2021-10-19] MEDS ORDERED: HEPARIN 100 UNIT/ML *20ML* SYRINGE CRRT INFUSION CRRT SCH (14:00)
[2021-10-19] MEDS ORDERED: ARGATROBAN 50MG/50ML for ESRD patients IV SCH ×2 (14:00)
== END 2021-10-19 14:56 | disposition expired | DRG 137 ==
LOC: M 4MAIN 13:26 → M ICU 10-07 18:28
PROVIDERS: ADMIT Internal Medicine; ATTEND Internal Medicine Pulmonary Disease
PROC: XW033E5 Introduction of Remdesivir Anti-infective into Peripheral Vein, Percutaneous Approach, New Technology Group 5 (ICD-10-PCS; principal; 2021-09-26)
PROC: 3E0333Z Introduction of Anti-inflammatory into Peripheral Vein, Percutaneous Approach (ICD-10-PCS; 2021-09-26)
PROC: 0W9930Z Drainage of Right Pleural Cavity with Drainage Device, Percutaneous Approach (ICD-10-PCS; 2021-10-10)
PROC: 0W9B30Z Drainage of Left Pleural Cavity with Drainage Device, Percutaneous Approach (ICD-10-PCS; 2021-10-11)
PROC: 0BH17EZ Insertion of Endotracheal Airway into Trachea, Via Natural or Artificial Opening (ICD-10-PCS; 2021-10-13)
PROC: 05H533Z Insertion of Infusion Device into Right Subclavian Vein, Percutaneous Approach (ICD-10-PCS; 2021-10-13)
PROC: 5A1945Z Respiratory Ventilation, 24-96 Consecutive Hours (ICD-10-PCS; 2021-10-13)
PROC: 04HK33Z Insertion of Infusion Device into Right Femoral Artery, Percutaneous Approach (ICD-10-PCS; 2021-10-17)
PROC: 06HM33Z Insertion of Infusion Device into Right Femoral Vein, Percutaneous Approach (ICD-10-PCS; 2021-10-17)
PROC: 02HV33Z Insertion of Infusion Device into Superior Vena Cava, Percutaneous Approach (ICD-10-PCS; 2021-10-18)
PROC: 5A1D90Z Performance of Urinary Filtration, Continuous, Greater than 18 hours Per Day (ICD-10-PCS; 2021-10-18)
DX: U07.1 COVID-19 (principal); J96.01 Acute respiratory failure with hypoxia; A41.89 Other specified sepsis; I21.09 ST elevation (STEMI) myocardial infarction involving other coronary artery of anterior wall; J12.82 Pneumonia due to coronavirus disease 2019; D69.6 Thrombocytopenia, unspecified; E87.2 Acidosis; J15.211 Pneumonia due to Methicillin susceptible Staphylococcus aureus; R65.21 Severe sepsis with septic shock; N17.9 Acute kidney failure, unspecified; Z94.4 Liver transplant status; E11.65 Type 2 diabetes mellitus with hyperglycemia; J93.83 Other pneumothorax; E87.5 Hyperkalemia; I10 Essential (primary) hypertension; M10.9 Gout, unspecified; E87.6 Hypokalemia; E86.0 Dehydration; N40.0 Benign prostatic hyperplasia without lower urinary tract symptoms; Z51.5 Encounter for palliative care; Z66 Do not resuscitate; F41.9 Anxiety disorder, unspecified; R74.01 Elevation of levels of liver transaminase levels; R04.0 Epistaxis; R07.89 Other chest pain; R19.7 Diarrhea, unspecified; R11.0 Nausea; Z79.52 Long term (current) use of systemic steroids; Z79.899 Other long term (current) drug therapy